=== PATIENT | male | born 1980 | race Caucasian/White ===

== ENCOUNTER 2019-11-04 22:38 | Emergency (ER) | payer OTHER, SELFPAY ==
[2019-11-04 22:39] VITALS: BP 123/73; PULSE 113; RESP 18; TEMP 36.7; O2SAT 97; BMI 23.0
--- NOTE | 2019-11-04 22:58 | ED.DCSUM_ITS ---
- ER Visit Summary Date of Service: 11/04/19 Chief Complaint: Alcohol abuse History of Present Illness: The patient is a 39 M who presents with alcohol abuse requesting detox. Patient states he last drank approximately 1 hour prior to arrival. Patient states he drinks large amount of alcohol daily. Family states that patient went through detox back in April. Family states that the patient started drinking on the weekends but has been drinking daily for the past month or so. Patient denies any vomiting or diarrhea. Patient denies any seizures. Family states that patient has had a history of alcohol withdrawal seizures. Patient states he has also had a history of delirium tremens in the past. Currently, patient denies any hallucinations. Patient denies any tremors at the present time. Physical Examination: Vital signs are stable for tachycardia of 113. Patient is afebrile. Patient is in no acute distress. Patient appears to be intoxicated. Oral mucosa is pink and moist. Neck is supple. Trachea is midline. There is no JVD. Heart was regular and tachycardic. Lungs are clear and equal bilaterally. Abdomen is soft. Bowel sounds are normal. There is no tenderness. Cranial nerves II through XII are intact. There are no focal motor or sensory deficits. There are no tremors noted. Extremities are intact. There is no calf tenderness or edema. Test Results: CBC, comprehensive metabolic profile, serum alcohol level, and uri ne tox screen were ordered. Serum alcohol level was 466. The remaining labs were essentially within normal limits. Emergency Department Course and Treatment: Patient was given a dose of oral phenobarb here. Case was discussed with the hospitalist, Dr. Ramachandran. She will be in to evaluate the patient and admit the patient to her service. Patient and family understand and are agreeable with the plan. All questions were answered. Patient changed his mind prior to being admitted to the floor. Patient wants to go home. Patient will be discharged. Patient was instructed to return if worse in any way. Patient's girlfriend will take him home and is agreeable to taking him home. Disposition: Discharge home Impression: Alcohol dependence This note was generated with [email or web address] dictation software. It may contain incorrect words, spelling, and punctuation that were not noted in review of the chart prior to signing ED Disposition - Plan for ED Patient: Disposition: Acute Care [facility] Diagnosis: Alcohol dependence Instructions: ED Alcohol Abuse Referrals: NOT,DEFINED [NON-STAFF] - 3-5 Days
--- NOTE | 2019-11-04 22:59 | HP.PCM_ITS ---
Problem List (1) Alcohol withdrawal Status: Acute Qualifiers: Complication of substance-induced condition: with unspecified complication Qualified Code(s): F10.239 - Alcohol dependence with withdrawal, unspecified (2) Anxiety Status: Chronic (3) Tobacco use Status: Chronic History of Present Illness Date of Admission: 11/04/19 Chief Complaint: Acute EtOH Withdrawal The patient is a 39 y/o M w/ PMHx: EtOH abuse with history of prior DT/prior seizures, Tobacco use, Untreated Anxiety who presents to the [facility] ED on 11/04/19 w/ noted EtOH significant abuse with prior severe withdrawal symptoms including seizures/DT noting interest in detoxification with last EtOH intake ~ 1 hour prior to ED arrival with recent onset of nausea, tremors, agitation, tactile disturbances secondary to decreased EtOH usage on day of ED presentation. Patient interested in attaining sober status. He does note prior detoxification program usage. Work-up in the ED included T 98, heart rate 113, BP 123/73, respiratory rate 18, 97% on room air, pending CBC, CMP, EtOH level, UDS upon requested evaluation of patient. In the ED patient administered phenobarbital 32.4 mg po x 1. Patient notes that he has attempted withdrawal treatment alone and in rehab setting several times, possibly up to 50. He does tend to drink more heavily and binge on the weekends secondary to his job. He has increased his intake over the last 2 weekends. He does have considerable anxiety and notes the only treatment he has had in the past is Vistaril which would did not work. He currently sees a nurse practitioner as his primary care and although she does know that he is an alcoholic he has never confided that he is severe anxiety. He notes that over the last 24 hours he has attempted to decrease his usual intake which is normally one half of 1/5 of gin. Past Medical History Past Medical History (Chronic Problems): Chronic Problems Anxiety (Chronic) Tobacco use (Chronic) Allergies No Known Allergies Allergy (Verified 11/04/19 22:42) Surgical History: - - Tonsillectomy. Psychiatric History: Anxiety Lives: Spouse/ Significant Other - Patient lives with his girlfriend. Smoking Status: Current every day smoker - With ongoing 1 pack/day cigarette tobacco usage. Tobacco Use: Cigarettes Alcohol: Heavy - Patient started drinking when he was 22 and continued to escalate, more so binge style currently, drinking one half of 1/5 normally daily. Drugs: None - *Family History Maternal History Items: - - Patient notes a maternal family history of heart disease. Patient notes a maternal grandfather with significant alcohol abuse history. Paternal History Items: - - Patient notes paternal family history of diabetes and colon cancer. Patient notes a paternal grandfather with significant alcohol abuse history. Review of Systems Constitutional: Reports: Malaise, Weakness, Fatigue. Denies: Anorexia, Chills, Fever, Weight Change HEENT: Denies: Head Aches, Sinus Congestion, Sinus Drainage Cardiovascular: Denies: Chest Pain, Palpitations Respiratory: Denies: Cough, Shortness of breath at rest, Sputum production Gastrointestinal: Reports: Nausea. Denies: Abdominal Pain, Vomiting Genitourinary: Denies: Dysuria Musculoskeletal: Denies: Joint Pain, Joint Tenderness Skin: Denies: Rash, Wounds Neurological: Reports: Tremor, Seizures - Prior DT., - - Significantly restle ss.. Denies: Focal weakness, Numbness, Tingling Psychiatric: Reports: Anxiety. Denies: Depression, Homicidal Ideations, Suicidal Ideations Hematologic/ Lymphatic: Denies: Easy Bruising, Easy Bleeding VTE Information - Inpt Only VTE Present on Admission: No VTE Mechan Device Prophylaxis: None VTE Pharm Prophylaxis ordered?: No Reason prophylaxis not ordered:: Treatment Not Indicated Patient Problems: Active and Suspected Problems Alcohol withdrawal (Acute) Subjective: Patient seated upright in the ED bed, mildly agitated, mild tremors noted. Objective: Physical Examination: General: awake, alert, oriented x 3 and cooperative, seated upright in the ED bed, mildly agitated. Skin: normal color, turgor, no icterus, cyanosis. HEENT: AT/NC, EOMI, PERRLA, mildly dry MM, no carotid bruits or JVD noted. Lungs: CTA bilaterally, moderate effort, moderate decrease BL bases, no rales, ronchi or wheezing. Heart: Mildly tachycardic with regular rhythm; no gallop, rub audible. Abdomen: soft, NTTP, ND, normal BS, mild positive HM. Extremities: no cyanosis, clubbing, or edema. Neurological: patient awake, alert, oriented x 3; cognitive function intact; pupils equally reactive to light and accomodation; cranial nerves II-XII grossly normal, moving all 4 extremities, no focal deficits, strength moderately good Alesha secondary to acute presentation, restless, mildly agitated, mild tremor noted. Psychiatric: affect appears fatigued, mildly agitated, mild irritability when discussing his anxiety, denies any acute depressive symptoms. - Physical Exam Vitals/I&O's: Vital Signs Temp Pulse Resp BP Pulse Ox 98.0 F 113 H 18 123/73 H 97 11/04/19 22:39 11/04/19 22:39 11/04/19 22:39 11/04/19 22:39 11/04/19 22:39 Oxygen Delivery Method Room Air Weight: 165 lb Body Mass Index (BMI) 23.0 Assessment/Plan All Active Problems Alcohol withdrawal (Acute) The patient is a 39 y/o M w/ PMHx: EtOH abuse with history of prior DT/prior seizures, Tobacco use, Untreated Anxiety who presents to the [facility] ED on 11/04/19 w/ noted EtOH significant abuse with prior severe withdrawal symptoms including seizures/DT noting interest in detoxification. 1. Acute EtOH Withdrawal: Will admit to [facility] on telemetry given seizure history, routine labs pending per ED upon presentation. Given interest in sobriety, will initiate and continue on protocol with taper course of Phenobarbital, scheduled gabapentin for seizure prophylaxis, as needed Catapres, Bentyl, Vistaril, IV fluids, IV antiemetics, Tylenol as needed for pain. Will consult Case management for assistance for transition to next level of rehabilitation care. Mag, phos requested. Maintain on CIWA protocol concurrently. 2. Untreated anxiety: Strongly encourage patient to consider discussions with his primary care regarding anxiety and initiation of potentially SSRI versus SNRI. Case management consultation with referral for 180 which can assist with counseling set up. 3. Tobacco Abuse: Encouraged cessation, inpatient consultation per RT, NR if desired. 4. DVT prophylaxis: Low risk, encourage ambulation. Inpatient E&M: 32499 Init Hosp L3
[2019-11-04 23:19] LABS: Absolute Lymphocyte Count 2.58 X10^3/uL (0.83-4.51); Absolute Neutrophil Count 2.3 X10^3/uL (2.0-7.7); Basophil# 0.07 X10^3/uL; Basophil% 1.2 % (0-1); Eosinophil# 0.38 X10^3/uL; Eosinophils% 6.5 % (0-5); Hematocrit 48.5 % (40-54); Lymphocyte # 2.58 X10^3/ul (4.0); Lymphocyte % 44.1 % (19-41); Mean Corpuscular Hgb 30.7 pg (27.0-32.0); Mean Corpuscular Volume 92.9 fL (80-94); Mean Platelet Vol. 8.7 fl (6.2-12.0); Monocyte# 0.49 X10^3/uL; Monocyte% 8.4 % (0-10); NRBC Flagged by Analyzer 0 % (0-5); Neutrophil % 39.3 % (47-70); Platelet Count 282 K/mm3 (150-450); RBC Distribution Width CV 11.9 % (11.6-14.6); RBC Distribution Width SD 40.9 fl (35.1-43.9); Red Blood Count 5.22 M/mm3 (4.6-6.2); White Blood Count 5.9 K/mm3 (4.4-11.0)
[2019-11-04 23:36] LABS: Amphetamine Urine VISTA NEGATIVE (<1000 ng/mL); Barbiturate Urine VISTA NEGATIVE (< 200 ng/mL); Benzodiazepine Urine VISTA NEGATIVE (< 200 ng/mL); Cocaine Urine VISTA NEGATIVE (< 300 ng/mL); Ecstacy Urine VISTA NEGATIVE (< 500 ng/mL); Methadone Urine VISTA NEGATIVE (< 300 ng/mL); PCP Urine VISTA NEGATIVE (< 25 ng/mL); THC Urine VISTA NEGATIVE (< 50 ng/mL); Vista UDS pH Range 5
[2019-11-04 23:37] LABS: ALB/GLOB Ratio 1.4 RATIO (0.9-2.4); AST(SGOT) 22 U/L (15-37); Alanine Aminotransfer ALT/SGPT 24 U/L (16-61); Albumin, Serum 4.5 g/dL (3.2-5.0); Alkaline Phosphatase 51 U/L (45-117); Anion Gap 5 (5-15); BUN 10 mg/dL (7-18); BUN/Creat Ratio 9.6 RATIO (10-20); Chloride 111 mmol/L (98-107); Creatinine, Serum 1.04 mg/dL (0.70-1.30); EST Glomerular Filtration Rate 85 mL/min (>60); Est Glom Filt Rate - Afr Amer 102 mL/min (>60); Estimated Creatinine Clearance 101.95 ml/min; Globulin 3.2 g/dL (2.2-4.2); Glucose 114 mg/dL (74-106); Potassium 4.3 mmol/L (3.5-5.1); Protein, Total 7.7 g/dL (6.4-8.2); Sodium Level 144 mmol/L (136-145)
--- NOTE | 2019-11-05 00:16 | ED.RN ---
PATIENT DECIDED HE WOULD LIKE TO GO HOME AND NO LONGER GO THROUGH THE DETOX PROGRAM. DR. MCLEOD NOTIFIED.
[2019-11-05 00:44] VITALS: RESP 18
== END 2019-11-05 00:45 | disposition short-term general hospital (02) ==
LOC: ED 23:38
PROVIDERS: Emergency Provider Emergency Medicine
DX: F10.239 Alcohol dependence with withdrawal, unspecified (principal); F17.210 Nicotine dependence, cigarettes, uncomplicated; Y90.8 Blood alcohol level of 240 mg/100 ml or more; F41.9 Anxiety disorder, unspecified; N52.8 Other male erectile dysfunction; Z82.49 Family history of ischemic heart disease and other diseases of the circulatory system; Z83.3 Family history of diabetes mellitus
CPT/HCPCS: 80053; 80307; 80320; 85025; 99283; A4216; G0480

== ENCOUNTER 2019-11-05 18:30 | Inpatient (IN) | payer OTHER, SELFPAY ==
[2019-11-04 22:39] VITALS: BMI 23.0
[2019-11-05 18:32] VITALS: BP 122/75; PULSE 116; RESP 18; TEMP 37.1; O2SAT 95; BMI 23.7
--- NOTE | 2019-11-05 19:27 | ED.VISSUMM ---
- ER Visit Summary Date of Service: 11/05/19 Chief Complaint: Alcohol detox History of Present Illness: The patient is a 39 M who is here requesting alcohol detox. He states that he drinks about 1/5 of gin per day. His last drink was 11:30 AM this morning. He has been to detox multiple times. He states that he does binge drink. He drinks until I passed out. He was here last night and had a medical work-up but left before he admitted to the hospital. He states that last night he was not ready but today he feels like he is ready for detox. Physical Examination: Vital signs reviewed. HEENT exam unremarkable. Heart is cardiac and regular rhythm without murmurs. Lungs are clear to auscultation. Abdomen is soft and nontender. Extremities reveal no edema. Skin exam normal. Neurologic exam normal other than the patient's intoxication. Test Results: Alcohol level is pending Emergency Department Course and Treatment: Discussed with the hospitalist. She knows the patient as she saw him last night. She will order further laboratory studies and admit the patient to the hospital Treatment Plan: [] Disposition: Admit Impression: Alcohol withdrawal This note was generated with [employer] dictation software. It may contain incorrect words, spelling, and punctuation that were not noted in review of the chart prior to signing ED Disposition - Plan for ED Patient: Referrals: Care Physician,No Primary [Primary Care Provider] -
[2019-11-05 19:43] VITALS: BP 112/51; PULSE 94; RESP 18; TEMP 37; O2SAT 96
--- NOTE | 2019-11-05 20:03 | HP.PCM_ITS ---
Problem List (1) Alcohol withdrawal Status: Acute Qualifiers: Complication of substance-induced condition: with unspecified complication Qualified Code(s): F10.239 - Alcohol dependence with withdrawal, unspecified (2) Anxiety Status: Chronic (3) Tobacco use Status: Chronic (4) Alcohol dependence Status: Chronic Qualifiers: Substance use status: unspecified alcohol-induced disorder Qualified Code(s): F10.29 - Alcohol dependence with unspecified alcohol-induced disorder History of Present Illness Date of Admission: 11/05/19 Chief Complaint: Acute EtOH Withdrawal treatment The patient is a 39 y/o M w/ PMHx: EtOH abuse with history of prior DT/prior seizures, Tobacco use, Untreated Anxiety who initially presented day prior on 11/04/2019 for alcohol withdrawal for treatment however he left following evaluation and admission from the ED prior to treatment but now returns to the [facility] ED on 11/05/2019 noting last intake to be 4 glucose earlier in the day in the early afternoon with no hard liquor on day of ED presentation, normal drinking one half of 1/5 of gin daily but interested in attaining sober status. Patient significantly less irritable than day prior. Patient day prior upon discussions had been very defensive when discussing his anxiety. Today patient more calm although tremors increased and notes ready for withdrawal treatment. Work-up in the ED included T 98.7, heart rate 116, BP 122/75, respiratory rate 18, 95% room on room air. Only lab obtained today was alcohol level noted to be 391. Day prior full panel of labs had been obtained with unremarkable CBC, unremarkable CMP, negative UDS at that time alcohol level had been 466. Past Medical History Past Medical History (Chronic Problems): Chronic Problems Anxiety (Chronic) Tobacco use (Chronic) Alcohol dependence (Chronic) Allergies No Known Allergies Allergy (Verified 11/05/19 18:32) Surgical History: - - Tonsillectomy. Psychiatric History: Anxiety Lives: Spouse/ Significant Other - Patient lives with his girlfriend. Smoking Status: Current every day smoker - With ongoing 1 pack/day cigarette tobacco usage Tobacco Use: Cigarettes Alcohol: Heavy - Patient started drinking when he was 22 and continued to escalate, more so binge style currently, drinking one half of 1/5 normally daily. Drugs: None - *Family History Maternal History Items: - - Patient notes a maternal family history of heart disease. Patient notes a maternal grandfather with significant alcohol abuse history. Paternal History Items: - - Patient notes paternal family history of diabetes and colon cancer. Patient notes a paternal grandfather with significant alcohol abuse hi story. Review of Systems Constitutional: Reports: Malaise, Weakness, Fatigue. Denies: Anorexia, Chills, Fever, Weight Change HEENT: Denies: Head Aches, Sinus Congestion, Sinus Drainage Cardiovascular: Denies: Chest Pain, Palpitations Respiratory: Denies: Cough, Shortness of breath at rest, Sputum production Gastrointestinal: Denies: Abdominal Pain, Nausea, Vomiting Genitourinary: Denies: Dysuria Musculoskeletal: Denies: Joint Pain, Joint Tenderness Skin: Denies: Rash, Wounds Neurological: Reports: Tremor, Seizures - History of prior withdrawal related D T., - - Restless, mild agitation.. Denies: Focal weakness, Numbness, Tingling Psychiatric: Reports: Anxiety. Denies: Depression, Homicidal Ideations, Suicidal Ideations Hematologic/ Lymphatic: Denies: Easy Bruising, Easy Bleeding VTE Information - Inpt Only VTE Present on Admission: No VTE Mechan Device Prophylaxis: None VTE Pharm Prophylaxis ordered?: No Reason prophylaxis not ordered:: Treatment Not Indicated Subjective: Seated upright in the ED bed, fatigued appearance, more so than day prior, again discussed admission and patient notes that he is ready for detoxification, mild tremors present, more than day prior. Objective: Physical Examination: General: awake, alert, oriented x 3 and cooperative, seated upright in the ED bed, fatigued appearance, mild tremors present. Skin: normal color, turgor, no icterus, cyanosis. HEENT: AT/NC, EOMI, PERRLA, mildly dry MM, no carotid bruits or JVD noted. Lungs: CTA bilaterally, moderate effort, moderate decrease BL bases, no rales, ronchi or wheezing. Heart: Mildly tachycardic with regular rhythm; no gallop, rub audible. Abdomen: soft, NTTP, ND, normal BS, mild positive HM. Extremities: no cyanosis, clubbing, or edema. Neurological: patient awake, alert, oriented x 3; cognitive function intact; pupils equally reactive to light and accomodation; cranial nerves II-XII grossly normal, moving all 4 extremities, no focal deficits, patient restless, was agitated the day prior, more amenable to treatment, mild tremors noted again. Psychiatric: affect appears fatigued, less irritable than day prior, very restless, no acute current depressive symptoms, admits to anxiety. - Physical Exam Vitals/I&O's: Vital Signs Temp Pulse Resp BP Pulse Ox 98.6 F 94 18 112/51 L 96 11/05/19 19:43 11/05/19 19:43 11/05/19 19:43 11/05/19 19:43 11/05/19 19:43 Oxygen Delivery Method Room Air Weight: 170 lb Body Mass Index (BMI) 23.7 Laboratory Results 11/05/19 19:20: Ethyl Alcohol Pending Assessment/Plan All Active Problems Alcohol withdrawal (Acute) The patient is a 39 y/o M w/ PMHx: EtOH abuse with history of prior DT/prior seizures, Tobacco use, Untreated Anxiety who presents to the [facility] ED on 11/05/19 for acute alcohol withdrawal, interested in detoxification treatment. 1. Acute EtOH Withdrawal: Will admit to [facility] on telemetry given seizure history, routine labs the day prior and not repeated, will obtain however magnesium and phosphorus levels and replete if appropriate.even patient not interested in admission will plan initiation and continued tapering course of phenobarbital, scheduled gabapentin for seizure prophylaxis, as needed Catapres, Bentyl, Vistaril, IV fluids, IV antiemetics, Tylenol as needed for pain. Will consult Case management for assistance for transition to next level of rehabilitation care and specifically focus on patient's anxiety with planned quick and early as well as aggressive follow-up for anxiety treatment is likely contributing greatly to his alcohol abuse. Maintain on CIIA protocol concurrently. 2. Untreated anxiety: Case management consulted to assist with alcohol withdrawal treatment transition but also for assurance of close early follow-up as severe anxiety likely contributing to patient's alcohol abuse. Discussed medication options and patient is interested and noted that this would be best done once he has performed inpatient detoxification. Patient is only ever been on Vistaril and this was not effective for his anxiety. Discussed likely necessity of SSRI versus SNRI. Patient will need early follow-up with counseling and PCP. 3. Tobacco Abuse: Encouraged cessation, inpatient consultation per RT, NR if desired. 4. DVT prophylaxis: Low risk, encourage ambulation. Inpatient E&M: 70662 Init Hosp L3
[2019-11-05 20:27] VITALS: BMI 23.1
--- NOTE | 2019-11-05 21:09 | CM.ED ---
Social Work Did not get a chance to assess patient in the ED. Telephone call to Raquel Prince. Updated on patient admission to [facility] program. Carissa Hansen MSW, ABNER
[2019-11-05 21:37] VITALS: BP 97/64; PULSE 90; RESP 18; TEMP 36.9; O2SAT 97
[2019-11-05 21:48] LABS: Magnesium 2.1 mg/dL (1.6-2.6); Phosphorus 4.3 mg/dL (2.5-4.9)
[2019-11-05] MEDS: Lactated Ringers 1,000 ML 125 ML IV (21:51)
[2019-11-05] MEDS: Phenobarbital 32.4 MG Tablet 64.8 MG PO (21:58)
[2019-11-05] MEDS: 0.9% Saline Lock 10 ML Syringe IV ×2 (22:02→22:10)
[2019-11-05] MEDS: hydrOXYzine PAM 25 MG Capsule 50 MG PO (22:08)
[2019-11-05] MEDS: Ibuprofen 600 MG Tablet PO (22:08)
[2019-11-05] MEDS: traZODone 100 MG Tablet PO (22:09)
[2019-11-06] VITALS (12 sets, daily range): BP systolic 98–143; BP diastolic 60–92; PULSE 71–100; RESP 16–18; TEMP 36.5–37.3; O2SAT 93–100
[2019-11-06] MEDS: Phenobarbital 32.4 MG Tablet 64.8 MG PO ×6 (02:07→21:44)
[2019-11-06] MEDS: 0.9% Saline Lock 10 ML Syringe IV (06:04)
--- NOTE | 2019-11-06 07:15 | PCM.PN.HOSP ---
Reason for Visit: Alcohol withdrawal Subjective: 39-year-old gentleman with history of alcohol dependence admitted with acute alcohol withdrawal Objective: GENERAL: cooperative HEENT: Atraumatic; EYES; Anicteric, Normal Conjunctiva NECK; supple, normal thyroid, RESPIRATORY: Diminished to auscultation CARDIOVASCULAR: Regular S1 S2, GI: soft, normoactive bowel sounds, : No Renal angle tenderness; EXTREMITIES: No edema, no clubbing, MUSCULOSKELETAL: no muscle waisting NEURO: Awake; no lateralizing signs. SKIN: No Rash PSYCH; Flat affect Vitals/I&O's: Vital Signs Temp Pulse Resp BP Pulse Ox 97.7 F L 71 16 98/62 97 11/06/19 06:00 11/06/19 06:00 11/06/19 06:00 11/06/19 06:00 11/06/19 06:00 Oxygen Delivery Method Room Air Weight: 75.2 kg Body Mass Index (BMI) 23.1 Intake and Output for Last 24 Hours 11/04/19 11/05/19 11/06/19 23:59 23:59 23:59 Intake Total 1600 / 1600 Balance 1600 / 1600 Laboratory Results 11/05/19 19:20: Ethyl Alcohol 391.0 H* 11/05/19 19:20: Phosphorus 4.3, Magnesium 2.1 Current Medications Acetaminophen (Tylenol) 500 mg PO Q4H PRN PRN PRN Reason: Temp > 100.4 F Al Hydroxide/Mg Hydroxide (Mylanta Ii) 30 ml PO Q6H PRN PRN PRN Reason: dyspesia Bisacodyl (Dulcolax) 10 mg RECTAL DAILY PRN PRN Reason: Constipation Dicyclomine HCl (Bentyl) 20 mg PO Q6H PRN PRN PRN Reason: abdominal discomfort Folic Acid (Folic Acid) 1 mg PO DAILY@0800 DEANNA Gabapentin (Neurontin) 300 mg PO Q8H PRN PRN PRN Reason: moderate to severe anxiety Hydroxyzine Pamoate (Vistaril Pamoate Capsule) 50 mg PO Q4H PRN PRN PRN Reason: mild anxiety Last Admin: 11/05/19 22:08 Dose: 50 mg Documented by: Ibuprofen (Motrin) 600 mg PO Q8H PRN PRN PRN Reason: Pain Score 1-10/10 Last Admin: 08/13/20 22:08 Dose: 600 mg Documented by: Loperamide HCl (Imodium) 2 mg PO Q4H PRN PRN PRN Reason: LOOSE STOOLS Nicotine (Nicoderm Cq (Pbkc)) 21 mg TRANSDERM. DAILY DEANNA Last Admin: 11/05/19 21:59 Dose: 21 mg Documented by: Ondansetron HCl (Zofran Odt) 8 mg PO Q8H PRN PRN PRN Reason: NAUSEA Phenobarbital (Phenobarbital) 97.2 mg PO Q4H DEANNA; Taper Stop: 11/10/19 05:29 Last Admin: 11/06/19 06:04 Dose: 97.2 mg Documented by: Senna (Senokot) 2 tablet PO QHS PRN PRN PRN Reason: Constipation Sodium Chloride () 10 - 40 ml IV UD PRN PRN Reason: SALINE FLUSH Last Admin: 11/06/19 06:04 Dose: 10 ml Documented by: Thiamine HCl (Vitamin B1) 100 mg PO DAILYCM DEANNA Trazodone HCl (Desyrel) 100 mg PO QHS PRN PRN PRN Reason: INSOMNIA Last Admin: 11/05/19 22:09 Dose: 100 mg Documented by: STROKE Vital Signs/Narrative: Vital Signs Temp Pulse Resp BP Pulse Ox 11/06/19 06:00 97.7 F L 71 16 98/62 97 Medical Necessity - Tobacco Use Smoking Status: Current every day smoker - With ongoing 1 pack/day cigarette tobacco usage Tobacco Use: Cigarettes Assessment/Plan All Active Problems Alcohol withdrawal (Acute) 39-year-old gentleman with history of alcohol dependence admitted with acute alcohol withdrawal 1. Acute alcohol withdrawal in a patient with alcohol dependence ?Patient has been admitted to regular nursing floor for medical stabilization using phenobarb. Patient was counseled on cessation and referral made to [facility] counseling services 2. Tobacco dependence - Counseled on cessation, offered nicotine patch for tobacco cravings 3. Anxiety disorder ?Patient encouraged follow-up with PCP for initiation of SSRI if needed 4. DVT prophylaxis ?Low risk did encourage early ambulation Inpatient E&M: 73728 Subs Hosp L2
[2019-11-06] MEDS: Thiamine Hydrochloride 100 MG Tablet PO (09:13)
[2019-11-06] MEDS: Folic Acid 1 MG Tablet PO (09:13)
--- NOTE | 2019-11-06 16:34 | ADDICTION ---
this narrative writer met with patient in his room to conduct ASAM, AUDIT and MSE assessments as well as discharge planning. Patient reports that he was drinking daily prior to admitting into [facility] for medical withdrawal management and appears motivated to engage in follow-up treatment with [facility]. He is scheduled for an appointment on 11/12/2019 at 5:30pm and plans to engage in treatment following this appointment. This narrative writer will fax completed assessments to [facility]
[2019-11-06] MEDS: traZODone 100 MG Tablet PO (21:47)
[2019-11-07] VITALS (8 sets, daily range): BP systolic 105–113; BP diastolic 61–83; PULSE 56–75; RESP 16; TEMP 36.6–36.8; O2SAT 96–99
[2019-11-07] MEDS: Phenobarbital 32.4 MG Tablet 64.8 MG PO ×6 (02:08→22:17)
--- NOTE | 2019-11-07 07:30 | PN_ITS ---
Reason for Visit: Acute alcohol withdrawal Subjective: Patient seen complains of sore throat this morning Cepacol lozenges ordered if symptoms persist for more than a day we will proceed to obtain COVID-19 assay Objective: GENERAL: cooperative HEENT: Atraumatic; EYES; Anicteric, Normal Conjunctiva NECK; supple, normal thyroid, RESPIRATORY: Diminished to auscultation CARDIOVASCULAR: Regular S1 S2, GI: soft, normoactive bowel sounds, : No Renal angle tenderness; EXTREMITIES: No edema, no clubbing, MUSCULOSKELETAL: no muscle waisting NEURO: Awake; no lateralizing signs. SKIN: No Rash PSYCH; Flat affect Vitals/I&O's: Vital Signs Temp Pulse Resp BP Pulse Ox 98.3 F 59 L 16 112/82 H 99 11/07/19 02:00 11/07/19 04:07 11/07/19 02:00 11/07/19 02:00 11/07/19 02:00 Oxygen Delivery Method Room Air Weight: 75.2 kg Body Mass Index (BMI) 23.1 Intake and Output for Last 24 Hours 11/05/19 11/06/19 11/07/19 23:59 23:59 23:59 Intake Total 1600 / 1600 Balance 1600 / 1600 Current Medications Acetaminophen (Tylenol) 500 mg PO Q4H PRN PRN PRN Reason: Temp > 100.4 F Al Hydroxide/Mg Hydroxide (Mylanta Ii) 30 ml PO Q6H PRN PRN PRN Reason: dyspesia Bisacodyl (Dulcolax) 10 mg RECTAL DAILY PRN PRN Reason: Constipation Dicyclomine HCl (Bentyl) 20 mg PO Q6H PRN PRN PRN Reason: abdominal discomfort Folic Acid (Folic Acid) 1 mg PO DAILY@0800 DEANNA Last Admin: 11/06/19 09:13 Dose: 1 mg Documented by: Gabapentin (Neurontin) 300 mg PO Q8H PRN PRN PRN Reason: moderate to severe anxiety Hydroxyzine Pamoate (Vistaril Pamoate Capsule) 50 mg PO Q4H PRN PRN PRN Reason: mild anxiety Last Admin: 11/05/19 22:08 Dose: 50 mg Documented by: Ibuprofen (Motrin) 600 mg PO Q8H PRN PRN PRN Reason: Pain Score 1-10/10 Last Admin: 11/05/19 22:08 Dose: 600 mg Documented by: Loperamide HCl (Imodium) 2 mg PO Q4H PRN PRN PRN Reason: LOOSE STOOLS Nicotine (Nicoderm Cq (Pbkc)) 21 mg TRANSDERM. DAILY [facility] Last Admin: 11/06/19 09:13 Dose: 21 mg Documented by: Ondansetron HCl (Zofran Odt) 8 mg PO Q8H PRN PRN PRN Reason: NAUSEA Phenobarbital (Phenobarbital) 64.8 mg PO Q4H [facility]; Taper Stop: 11/10/19 05:29 Last Admin: 11/07/19 05:55 Dose: 64.8 mg Documented by: Senna (Senokot) 2 tablet PO QHS PRN PRN PRN Reason: Constipation Sodium Chloride () 10 - 40 ml IV UD PRN PRN Reason: SALINE FLUSH Last Admin: 11/06/19 06:04 Dose: 10 ml Documented by: Thiamine HCl (Vitamin B1) [facility] Last Admin: 11/06/19 09:13 Dose: 100 mg Documented by: Trazodone HCl (Desyrel) 100 mg PO QHS PRN PRN PRN Reason: INSOMNIA Last Admin: 11/06/19 21:47 Dose: 100 mg Documented by: STROKE Vital Signs/Narrative: Vital Signs Pulse 11/07/19 04:07 59 L Medical Necessity - Tobacco Use Smoking Status: Current every day smoker Tobacco Use: Cigarettes Assessment/Plan All Active Problems Alcohol withdrawal (Acute) 39-year-old gentleman with history of alcohol dependence admitted with acute alcohol withdrawal 1. Acute alcohol withdrawal in a patient with alcohol dependence ?Patient has been admitted to regular nursing floor for medical stabilization using phenobarb. Patient was counseled on cessation and referral made to [facility] counseling services 2. Tobacco dependence - Counseled on cessation, offered nicotine patch for tobacco cravings 3. Anxiety disorder ?Patient encouraged follow-up with PCP for initiation of SSRI if needed 4. DVT prophylaxis ?Low risk did encourage early ambulation 4. Acute pharyngitis ?Treated symptomatically with plans to obtain COVID-19 assay if symptoms persist Inpatient E&M: 84199 Subs Hosp L2
[2019-11-07 09:27] LABS: Absolute Lymphocyte Count 1.23 X10^3/uL (0.83-4.51); Absolute Neutrophil Count 3.2 X10^3/uL (2.0-7.7); Basophil# 0.05 X10^3/uL; Basophil% 0.9 % (0-1); Eosinophil# 0.42 X10^3/uL; Eosinophils% 7.7 % (0-5); Hematocrit 44.7 % (40-54); Lymphocyte # 1.23 X10^3/ul (4.0); Lymphocyte % 22.7 % (19-41); Mean Corp Hgb Conc 33.6 g/dL (32-36); Mean Corpuscular Hgb 30.4 pg (27.0-32.0); Mean Corpuscular Volume 90.7 fL (80-94); Mean Platelet Vol. 9.1 fl (6.2-12.0); Monocyte# 0.49 X10^3/uL; NRBC Flagged by Analyzer 0 % (0-5); Neutrophil # 3.23 X10^3/uL (2.7-7.7); Neutrophil % 59.5 % (47-70); Platelet Count 194 K/mm3 (150-450); RBC Distribution Width CV 11.2 % (11.6-14.6); RBC Distribution Width SD 37.4 fl (35.1-43.9); Red Blood Count 4.93 M/mm3 (4.6-6.2); White Blood Count 5.4 K/mm3 (4.4-11.0)
[2019-11-07] MEDS: Thiamine Hydrochloride 100 MG Tablet PO (09:30)
[2019-11-07] MEDS: Folic Acid 1 MG Tablet PO (09:30)
[2019-11-07 09:44] LABS: ALB/GLOB Ratio 1.3 RATIO (0.9-2.4); AST(SGOT) 18 U/L (15-37); Alanine Aminotransfer ALT/SGPT 19 U/L (16-61); Albumin, Serum 3.8 g/dL (3.2-5.0); Alkaline Phosphatase 53 U/L (45-117); Anion Gap 7 (5-15); BUN 10 mg/dL (7-18); BUN/Creat Ratio 10.9 RATIO (10-20); Calcium,Total 8.7 mg/dL (8.5-10.1); Chloride 105 mmol/L (98-107); Creatinine, Serum 0.92 mg/dL (0.70-1.30); EST Glomerular Filtration Rate 97 mL/min (>60); Est Glom Filt Rate - Afr Amer 118 mL/min (>60); Glucose 128 mg/dL (74-106); Magnesium 1.9 mg/dL (1.6-2.6); Potassium 3.9 mmol/L (3.5-5.1); Protein, Total 6.8 g/dL (6.4-8.2); Sodium Level 138 mmol/L (136-145)
[2019-11-07] MEDS: BENZOCAINE/MENTHOL 1 LOZENGE MUCOUS MEM ×2 (14:50→22:23)
[2019-11-07] MEDS: traZODone 100 MG Tablet PO (22:16)
[2019-11-08] MEDS: Phenobarbital 32.4 MG Tablet 64.8 MG PO ×2 (01:58→05:51)
[2019-11-08 05:56] VITALS: BP 109/70; PULSE 66; RESP 14; TEMP 36.4; O2SAT 96
--- NOTE | 2019-11-08 08:49 | DCINST_ITS ---
You will use the following diet at home:: No restrictions Allergies/Adverse Reactions: Allergies No Known Allergies Allergy (Verified 11/05/19 18:32) Primary Care Physician: Care Physician,No Primary [Primary Care Provider] - Test Results: Test results from this visit will be discussed in further detail at your follow- up appointment, if applicable. Please Follow Up With: [facility] counseling services When: as scheduled Proposed Discharge Date: 11/08/19
--- NOTE | 2019-11-08 08:51 | PCM.DC.SUM ---
Discharge Date and Diagnosis Date of Admission: 11/05/19 Date of Discharge: 11/08/19 - Primary Discharge Diagnosis Acute Problems: Alcohol withdrawal - Secondary Discharge Diagnosis Chronic Problems: Chronic Problems Anxiety (Chronic) Tobacco use (Chronic) Hospital Course and Treatment Summary of Care Provided: 39-year-old gentleman with history of alcohol dependence admitted with acute alcohol withdrawal 1. Acute alcohol withdrawal in a patient with alcohol dependence ?Patient has been admitted to regular nursing floor for medical stabilization using phenobarb. Patient was counseled on cessation and referral made to [facility] counseling services -Patient stable for discharge on 11/07/2019. 2. Tobacco dependence - Counseled on cessation, offered nicotine patch for tobacco cravings 3. Anxiety disorder ?Patient encouraged follow-up with PCP for initiation of SSRI if needed 4. DVT prophylaxis ?Low risk did encourage early ambulation 4. Acute pharyngitis ?Treated symptomatically - Physical Exam Vitals/I&O's: Vital Signs Temp Pulse Resp BP Pulse Ox 97.5 F L 66 14 109/70 96 11/08/19 05:56 11/08/19 05:56 11/08/19 05:56 11/08/19 05:56 11/08/19 05:56 Oxygen Delivery Method Room Air Weight: 75.2 kg Body Mass Index (BMI) 23.1 Intake and Output for Last 24 Hours 11/06/19 11/07/19 11/08/19 23:59 23:59 23:59 Intake Total 1600 / 1600 Balance 1600 / 1600 General: Alert HEENT: Atraumatic Neck: Supple Lungs: Clear to auscultation Cardiovascular: Regular rate, Regular Rhythm Psych/Mental Status: Normal Affect Laboratory Results 11/07/19 09:14: WBC 5.4, RBC 4.93, Hgb 15.0, Hct 44.7, MCV 90.7, MCH 30.4, MCHC 33.6, RDW Std Deviation 37.4, RDW Coeff of Donovan 11.2 L, Plt Count 194, MPV 9.1, Immature Gran % (Auto) 0.200, Neut % (Auto) 59.5, Lymph % (Auto) 22.7, [place] % (Auto) 9.0, Eos % (Auto) 7.7 H, Baso % (Auto) 0.9, Absolute Neuts (auto) 3.2, Absolute Lymphs (auto) 1.23, Nucleated RBC % 0 08/15/20 09:14: Sodium 138, Potassium 3.9, Chloride 105, Carbon Dioxide 26.0, Anion Gap 7, BUN 10, Creatinine 0.92, Estim Creat Clear Calc 115.80, Est GFR (MDRD) Af Amer 118, Est GFR (MDRD) Non-Af 97, BUN/Creatinine Ratio 10.9, Glucose 128 H, Calcium 8.7, Magnesium 1.9, Total Bilirubin 1.00, AST 18, ALT 19, Alkaline Phosphatase 53, Total Protein 6.8, Albumin 3.8, Globulin 3.0, Albumin/Globulin Ratio 1.3 Current Medications Acetaminophen (Tylenol) 500 mg PO Q4H PRN PRN PRN Reason: Temp > 100.4 F Al Hydroxide/Mg Hydroxide (Mylanta Ii) 30 ml PO Q6H PRN PRN PRN Reason: dyspesia Bisacodyl (Dulcolax) 10 mg RECTAL DAILY PRN PRN Reason: Constipation Dicyclomine HCl (Bentyl) 20 mg PO Q6H PRN PRN PRN Reason: abdominal discomfort Folic Acid (Folic Acid) 1 mg PO DAILY@0800 [facility] Last Admin: 11/07/19 09:30 Dose: 1 mg Documented by: Gabapentin (Neurontin) 300 mg PO Q8H PRN PRN PRN Reason: moderate to severe anxiety Hydroxyzine Pamoate (Vistaril Pamoate Capsule) 50 mg PO Q4H PRN PRN PRN Reason: mild anxiety Last Admin: 11/05/19 22:08 Dose: 50 mg Documented by: Ibuprofen (Motrin) 600 mg PO Q8H PRN PRN PRN Reason: Pain Score 1-10/10 Last Admin: 11/05/19 22:08 Dose: 600 mg Documented by: Loperamide HCl (Imodium) 2 mg PO Q4H PRN PRN PRN Reason: LOOSE STOOLS Nicotine (Nicoderm Cq (Pbkc)) 21 mg TRANSDERM. DAILY [facility] Last Admin: 11/07/19 09:30 Dose: 21 mg Documented by: Ondansetron HCl (Zofran Odt) 8 mg PO Q8H PRN PRN PRN Reason: NAUSEA Phenobarbital (Phenobarbital) 64.8 mg PO Q6H [facility]; Taper Stop: 11/10/19 05:29 Last Admin: 11/08/19 05:51 Dose: 64.8 mg Documented by: Senna (Senokot) 2 tablet PO QHS PRN PRN PRN Reason: Constipation Sodium Chloride () 10 - 40 ml IV UD PRN PRN Reason: SALINE FLUSH Last Admin: 11/06/19 06:04 Dose: 10 ml Documented by: Thiamine HCl (Vitamin B1) 100 mg PO DAILYCM DEANNA Last Admin: 11/07/19 09:30 Dose: 100 mg Documented by: Throat Lozenges (Cepacol Sore Throat Lozenge) 1 lozenge MUCOUS MEM Q2H PRN PRN PRN Reason: SORE THROAT Last Admin: 11/07/19 22:23 Dose: 1 lozenge Documented by: Trazodone HCl (Desyrel) 100 mg PO QHS PRN PRN PRN Reason: INSOMNIA Last Admin: 11/07/19 22:16 Dose: 100 mg Documented by: Discharge Diet: No Restrictions Discharge Activity: Return to Normal Activity Primary Care Physician: Care Physician,No Primary [Primary Care Provider] - Please Follow Up With: [facility] counseling services When: as scheduled Disposition: Home Minutes spent on discharge:: 35 Patient Condition:: Stable Medical Necessity - Tobacco Use Smoking Status: Current every day smoker Tobacco Use: Cigarettes Meaningful Use Info Meaningful Use Diagnoses (Choose all that apply): None applicable Inpatient E&M: 39382 Disch Hosp
[2019-11-08 09:19] VITALS: BP 111/69; PULSE 79; RESP 18; TEMP 37.2; O2SAT 99
[2019-11-08] MEDS: Folic Acid 1 MG Tablet PO (09:22)
[2019-11-08] MEDS: Thiamine Hydrochloride 100 MG Tablet PO (09:22)
== END 2019-11-08 10:05 | disposition home or self-care (01) | DRG 897 ==
LOC: ED 19:20 → MS3 21:30
PROVIDERS: Admitting Provider Family Medicine; Emergency Provider Emergency Medicine; Visit Provider Internal Medicine
DX: F10.239 Alcohol dependence with withdrawal, unspecified (principal); F41.9 Anxiety disorder, unspecified; F17.210 Nicotine dependence, cigarettes, uncomplicated; J02.9 Acute pharyngitis, unspecified; F10.29 Alcohol dependence with unspecified alcohol-induced disorder; Y90.8 Blood alcohol level of 240 mg/100 ml or more; Z80.0 Family history of malignant neoplasm of digestive organs; Z82.49 Family history of ischemic heart disease and other diseases of the circulatory system; Z83.3 Family history of diabetes mellitus
CPT/HCPCS: 36415; 80053; 80320; 83735; 84100; 85025; 99282; 99406; J7120; A4216; G0480

== ENCOUNTER 2020-03-02 10:38 | Inpatient (IN) | payer OTHER, SELFPAY ==
[2019-11-05 20:27] VITALS: BMI 23.1
[2020-03-02 10:40] VITALS: BP 141/118; PULSE 100; RESP 18; TEMP 36.6; O2SAT 99; BMI 178.5
--- NOTE | 2020-03-02 11:05 | ED.VISSUMM ---
- ER Visit Summary Date of Service: 03/02/20 Chief Complaint: [Alcohol intoxication] History of Present Illness: The patient is a 40 M [presents to the emergency department via private vehicle. Patient was brought in by his father requesting detox from alcohol. Patient is unclear when he last drank this morning. Patient states that he normally drinks gin. Patient drinks daily. Patient states that he is recently gone through detox. Patient states he drinks every day. He currently states that he otherwise does not feel bad. He has no other medical history. Patient denies prior surgeries. He does smoke cigarettes. He denies any illicit drug use.] Physical Examination: [HEENT-PERRLA, EOMI. Cranial nerves II through XII grossly intact. TMs clear. Mucous membranes moist. No adenopathy. Patient is awake and at times slow to respond to questions but answers questions appropriately. Cardiovascular-regular rate and rhythm without murmur or ectopy Lungs-clear to auscultation, chest wall stable without crepitus or subcu emphysema Abdomen-normoactive bowel sounds, soft, nontender, no rebound or rigidity, no peritoneal signs. Extremities-intact ?4, normal range of motion, normal pulses, atraumatic] Test Results: [CBC with differential obtained showed a white count of 6.5, hemoglobin 15.8, hematocrit 45, placed 319. Chemistries unremarkable. LFTs were normal. Alcohol was 423.] Emergency Department Course and Treatment: [IV line established on arrival.] I discussed results with patient and he is willing to have detox. Treatment Plan: [Admit] Disposition: [Admit] Impression: [Alcohol intoxication Request for detox from alcohol ] This note was generated with [employer] dictation software. It may contain incorrect words, spelling, and punctuation that were not noted in review of the chart prior to signing ED Disposition - Plan for ED Patient: Referrals: Care Physician,No Primary [Primary Care Provider] -
[2020-03-02 11:15] LABS: Absolute Lymphocyte Count 2.58 X10^3/uL (0.83-4.51); Absolute Neutrophil Count 2.7 X10^3/uL (2.0-7.7); Basophil% 1.5 % (0-1); Eosinophil# 0.18 X10^3/uL; Eosinophils% 2.8 % (0-5); Hematocrit 45.4 % (40-54); Hemoglobin 15.8 g/dL (13.0-16.5); Lymphocyte # 2.58 X10^3/ul (4.0); Lymphocyte % 39.8 % (19-41); Mean Corp Hgb Conc 34.8 g/dL (32-36); Mean Corpuscular Hgb 31.2 pg (27.0-32.0); Mean Corpuscular Volume 89.5 fL (80-94); Mean Platelet Vol. 8.6 fl (6.2-12.0); Monocyte# 0.91 X10^3/uL; NRBC Flagged by Analyzer 0 % (0-5); Neutrophil % 41.6 % (47-70); Platelet Count 319 K/mm3 (150-450); RBC Distribution Width CV 12.6 % (11.6-14.6); Red Blood Count 5.07 M/mm3 (4.6-6.2); White Blood Count 6.5 K/mm3 (4.4-11.0)
[2020-03-02] MEDS: 0.9% Normal Saline 1,000 ML 150 ML IV (11:22)
[2020-03-02 11:27] LABS: ALB/GLOB Ratio 1.4 RATIO (0.9-2.4); AST(SGOT) 42 U/L (15-37); Alanine Aminotransfer ALT/SGPT 51 U/L (16-61); Albumin, Serum 4.6 g/dL (3.2-5.0); Alkaline Phosphatase 67 U/L (45-117); Anion Gap 7 (5-15); BUN 5 mg/dL (7-18); BUN/Creat Ratio 5.5 RATIO (10-20); Calcium,Total 8.4 mg/dL (8.5-10.1); Chloride 110 mmol/L (98-107); EST Glomerular Filtration Rate 100 mL/min (>60); Est Glom Filt Rate - Afr Amer 121 mL/min (>60); Estimated Creatinine Clearance 117.37 ml/min; Globulin 3.2 g/dL (2.2-4.2); Glucose 112 mg/dL (74-106); Potassium 3.9 mmol/L (3.5-5.1); Protein, Total 7.8 g/dL (6.4-8.2); Sodium Level 144 mmol/L (136-145)
[2020-03-02 12:48] VITALS: BP 131/97; PULSE 93; RESP 11; TEMP 36.6; O2SAT 96
[2020-03-02 13:20] LABS: Amphetamine Urine VISTA NEGATIVE (<1000 ng/mL); Barbiturate Urine VISTA NEGATIVE (< 200 ng/mL); Benzodiazepine Urine VISTA NEGATIVE (< 200 ng/mL); Cocaine Urine VISTA NEGATIVE (< 300 ng/mL); Ecstacy Urine VISTA NEGATIVE (< 500 ng/mL); Methadone Urine VISTA NEGATIVE (< 300 ng/mL); PCP Urine VISTA NEGATIVE (< 25 ng/mL); THC Urine VISTA NEGATIVE (< 50 ng/mL); Vista UDS pH Range 6
--- NOTE | 2020-03-02 13:27 | PCM.HP.STD ---
Problem List (1) Alcohol abuse Status: Chronic (2) Alcohol withdrawal Status: Acute Qualifiers: (3) Anxiety Status: Chronic (4) Tobacco use Status: Chronic History of Present Illness Date of Admission: 03/02/20 Chief Complaint: Acute alcohol intoxication/withdrawal requesting medical stabilization. The patient is a 40 year old M with past medical history as mentioned above presented to the emergency room requesting admission for acute alcohol intoxication/withdrawal for medical stabilization. Actually, patient was brought in to the ED by his father requesting admission for detox from alcohol abuse. At this time, father is not in the room and patient was alone. Patient mentioned that he has been drinking every day and his last drink was this morning. Apparently, patient was admitted 3 months ago for alcohol detoxification but he mentioned that he was sober on the for a week or so and he started drinking again. He mentioned that he followed up with the [facility] program just once or twice. At this time, he has no specific symptoms. He smokes cigarettes almost 1 pack every day. He denied use of illicit drugs. He denied shakiness or tremors. He denied abdominal pain, nausea or vomiting. He denied chest pain or shortness of breath. In the emergency department, his vital signs were stable. His routine blood work was unremarkable. LFT was unremarkable. Urine drug screen was negative. Blood alcohol level was 423. He is being admitted for acute alcohol intoxication/withdrawal for medical stabilization. Past Medical History Past Medical History (Chronic Problems): Chronic Problems Alcohol abuse (Chronic) Anxiety (Chronic) Tobacco use (Chronic) Allergies No Known Allergies Allergy (Verified 03/02/20 10:44) Home Medications: Ambulatory Orders Medication Instructions Recorded NK 03/02/20 Surgical History: - - Tonsillectomy. Psychiatric History: Anxiety Lives: Spouse/ Significant Other Smoking Status: Current some day smoker Tobacco Use: Cigarettes Alcohol: Heavy Drugs: None - *Family History Maternal History Items: - - Patient notes a maternal family history of heart disease. Patient notes a maternal grandfather with significant alcohol abuse history. Paternal History Items: - - Patient notes paternal family history of diabetes and colon cancer. Patient notes a paternal grandfather with significant alcohol abuse history. Review of Systems Constitutional: Denies: Anorexia, Chills, Fever, Weakness Eyes: Denies: Blurred vision, Conjunctivae Inflammation, Drainage, Redness HEENT: Denies: Difficulty Hearing, Dysphasia, Ear Pain, Eye Pain, Nasal Congestion, Sore Throat Cardiovascular: Denies: Chest Pain, Chest Pressure, Chest Tightness, Edema, Heaviness, Palpitations, Syncope Respiratory: Denies: Cough, Pleuritic Pain, Shortness of Breath, Sputum production, Wheezing Gastrointestinal: Denies: Abdominal Pain, Constipation, Diarrhea, Nausea, Vomiting Genitourinary: Denies: Dysuria, Frequency, Hematuria Musculoskeletal: Denies: Arm Pain, Back Pain, Foot Pain Skin: Denies: Dryness, Rash Neurological: Denies: Balance problems, Blurred vision, Double vision, Change in Speech, Slurred speech, Headaches, Incoordination, Numbness Psychiatric: Reports: Anxiety. Denies: Depression Endocrine: Denies: Change in Body Habitus, Polydipsia, Polyuria VTE Information - Inpt Only VTE Present on Admission: No VTE Mechan Device Prophylaxis: None VTE Pharm Prophylaxis ordered?: No - Physical Exam Vitals/I&O's: Vital Signs Temp Pulse Resp BP Pulse Ox 97.8 F 93 11 L 131/97 H 96 03/02/20 12:48 03/02/20 12:48 03/02/20 12:48 03/02/20 12:48 03/02/20 12:48 Oxygen Delivery Method Room Air Weight: 1280 lb Body Mass Index (BMI) 178.5 General: Alert, Oriented x3, Cooperative, No apparent distress, - - Slow in answering questions. HEENT: Atraumatic, PERRLA, EOMI, Normocephalic Oral: Moist Mucosa, No Gingival or Mucosal Lesions/ Ulcerations Neck: Supple, No JVD, Negative Carotid Bruits, Trachea Midline, Thyroid Normal Size and Texture Lungs: Clear to auscultation, Normal air movement, No rhonchi, No wheeze, No rales Cardiovascular: Regular rate, Regular Rhythm, Normal S1, Normal S2, No murmurs, PMI Normal Abdomen: Bowel Sounds Present, Soft, Non Tender, Non-Distended, No Hepato-splenomegaly Extremities: No clubbing, No cyanosis, No edema Skin: No rashes, No breakdown Lymphatic: No Cervical, Supraclavicular, or Inguinal Adenopathy Neurological: Cranial nerves II-XII grossly intact, Motor Exam 5/5 strength throughout Psych/Mental Status: Normal Affect, Appropriate, Alert and oriented to time, place, person, mood and affect Laboratory Results 03/02/20 10:55: WBC 6.5, RBC 5.07, Hgb 15.8, Hct 45.4, MCV 89.5, MCH 31.2, MCHC 34.8, RDW Std Deviation 41.0, RDW Coeff of Donovan 12.6, Plt Count 319, MPV 8.6, Immature Gran % (Auto) 0.300, Neut % (Auto) 41.6 L, Lymph % (Auto) 39.8, [place] % (Auto) 14.0 H, Eos % (Auto) 2.8, Baso % (Auto) 1.5 H, Absolute Neuts (auto) 2.7, Absolute Lymphs (auto) 2.58, Nucleated RBC % 0 03/02/20 10:55: Sodium 144, Potassium 3.9, Chloride 110 H, Carbon Dioxide 27.0, Anion Gap 7, BUN 5 L, Creatinine 0.90, Estim Creat Clear Calc 117.37, Est GFR (MDRD) Af Amer 121, Est GFR (MDRD) Non-Af 100, BUN/Creatinine Ratio 5.5 L, Glucose 112 H, Calcium 8.4 L, Total Bilirubin 0.40, AST 42 H, ALT 51, Alkaline Phosphatase 67, Total Protein 7.8, Albumin 4.6, Globulin 3.2, Albumin/Globulin Ratio 1.4 03/02/20 10:55: Ethyl Alcohol 423.0 H* 03/02/20 12:40: Urine Opiates Screen NEGATIVE, Urine Methadone Screen NEGATIVE, Ur Barbiturates Screen NEGATIVE, Ur Phencyclidine Scrn NEGATIVE, Ur Amphetamines Screen NEGATIVE, U Methamphetamin-MDMA NEGATIVE, U Benzodiazepines Scrn NEGATIVE, Urine Cocaine Screen NEGATIVE, U Cannabinoids Screen NEGATIVE, Ur Drug Screen Comment Current Medications Sodium Chloride () 1,000 mls @ 150 mls/hr IV .Q6H40M [facility] Last Admin: 03/02/20 11:22 Dose: 150 mls/hr Documented by: Assessment/Plan All Active Problems Alcohol withdrawal (Acute) This is a 40 years old male patient was brought to the ED by his father requesting admission for acute alcohol intoxication/withdrawal for medical stabilization. #1 acute alcohol intoxication/withdrawal: Patient was admitted for detox on October, but he relapsed quickly. Blood alcohol level is 423. Urine drug screen is negative. CBC, BMP and LFT was unremarkable. His vital signs are stable. Plan: Admit to MedSurg floor, initiate alcohol detox protocol with tapering phenobarbital, CIWA protocol, Ativan as needed, folic acid, thiamine, as needed Bentyl, Neurontin, Vistaril, Imodium, Zofran and trazodone, consult [facility] program. #2 tobacco abuse: NicoDerm patch. #3 anxiety: Currently not on treatment. Patient may need to follow-up with his PCP and counseling center upon discharge. #4 DVT prophylaxis: Low risk patient, no prophylaxis indicated. This note was generated with [employer] dictation software. It may contain incorrect words, spelling, and punctuation that were not noted in checking the note before signing. Inpatient E&M: 27441 Init Hosp L2
[2020-03-02 14:15] VITALS: BP 139/72; PULSE 64; RESP 15; O2SAT 97
[2020-03-02 15:37] VITALS: BMI 28.0
[2020-03-02 15:58] VITALS: BMI 22.6
[2020-03-02 16:03] VITALS: BP 123/91; PULSE 85; RESP 16; TEMP 37.1; O2SAT 100
--- NOTE | 2020-03-02 16:34 | PCS.PANDOC ---
PANDEMIC DOCUMENTATION INITIATED: Date: 01/01/20 Time: 6229
[2020-03-02] MEDS: Phenobarbital 32.4 MG Tablet 64.8 MG PO ×3 (16:41→23:28)
[2020-03-02 18:47] VITALS: BP 125/75; PULSE 101; RESP 16; TEMP 37.1; O2SAT 100
[2020-03-02 21:37] VITALS: BP 114/70; PULSE 81; RESP 16; TEMP 37.5; O2SAT 96
[2020-03-02] MEDS: LORazepam 1 MG Tablet 2 MG PO (21:45)
[2020-03-02] MEDS: traZODone 100 MG Tablet PO (21:49)
[2020-03-03] VITALS (7 sets, daily range): BP systolic 106–134; BP diastolic 62–84; PULSE 68–84; RESP 16–18; TEMP 36.6–37.3; O2SAT 97–100
--- NOTE | 2020-03-03 08:19 | PN_ITS ---
Patient Problems: Active and Suspected Problems Alcohol withdrawal (Acute) Subjective: Chief complaint: Follow-up after admission for acute alcohol intoxication/withdrawal. Patient seen and examined. No acute events overnight. This morning, he complained of muscle aches. No other symptoms. Slept okay last night. His vital signs are stable. - Physical Exam Vitals/I&O's: Vital Signs Temp Pulse Resp BP Pulse Ox 97.8 F 83 16 134/78 H 99 03/03/20 06:17 03/03/20 06:17 03/03/20 06:17 03/03/20 06:17 03/03/20 06:17 Oxygen Delivery Method Room Air Weight: 162 lb 7.691 oz Body Mass Index (BMI) 22.6 Intake and Output for Last 24 Hours 03/01/20 03/02/20 03/03/20 23:59 23:59 23:59 Intake Total 1510 / 1510 300 / 300 Output Total Balance 1509 / 1509 300 / 300 General: Alert, Oriented x3, Cooperative, No apparent distress HEENT: Atraumatic, PERRLA, EOMI, Normocephalic Oral: Moist Mucosa, No Gingival or Mucosal Lesions/ Ulcerations Neck: Supple, No JVD, Negative Carotid Bruits, Trachea Midline, Thyroid Normal Size and Texture Lungs: Clear to auscultation, Normal air movement, No rhonchi, No wheeze, No rales Cardiovascular: Regular rate, Regular Rhythm, Normal S1, Normal S2, PMI Normal Abdomen: Bowel Sounds Present, Soft, Non Tender, Non-Distended, No Hepato- splenomegaly Extremities: No clubbing, No cyanosis, No edema Skin: No rashes, No breakdown Lymphatic: No Cervical, Supraclavicular, or Inguinal Adenopathy Neurological: Cranial nerves II-XII grossly intact, Neuro grossly intact Psych/Mental Status: Normal Affect, Appropriate, Alert and oriented to time, place, person, mood and affect Laboratory Results 03/02/20 10:55: WBC 6.5, RBC 5.07, Hgb 15.8, Hct 45.4, MCV 89.5, MCH 31.2, MCHC 34.8, RDW Std Deviation 41.0, RDW Coeff of [place] 12.6, Plt Count 319, MPV 8.6, Immature Gran % (Auto) 0.300, Neut % (Auto) 41.6 L, Lymph % (Auto) 39.8, [place] % (Auto) 14.0 H, Eos % (Auto) 2.8, Baso % (Auto) 1.5 H, Absolute Neuts (auto) 2.7, Absolute Lymphs (auto) 2.58, Nucleated RBC % 0 03/02/20 10:55: Sodium 144, Potassium 3.9, Chloride 110 H, Carbon Dioxide 27.0, Anion Gap 7, BUN 5 L, Creatinine 0.90, Estim Creat Clear Calc 117.37, Est GFR (MDRD) Af Amer 121, Est GFR (MDRD) Non-Af 100, BUN/Creatinine Ratio 5.5 L, Glucose 112 H, Calcium 8.4 L, Total Bilirubin 0.40, AST 42 H, ALT 51, Alkaline Phosphatase 67, Total Protein 7.8, Albumin 4.6, Globulin 3.2, Albumin/Globulin Ratio 1.4 03/02/20 10:55: Ethyl Alcohol 423.0 H* 03/02/20 12:40: Urine Opiates Screen NEGATIVE, Urine Methadone Screen NEGATIVE, Ur Barbiturates Screen NEGATIVE, Ur Phencyclidine Scrn NEGATIVE, Ur Amphetamines Screen NEGATIVE, U Methamphetamin-MDMA NEGATIVE, U Benzodiazepines Scrn N EGATIVE, Urine Cocaine Screen NEGATIVE, U Cannabinoids Screen NEGATIVE, Ur Drug Screen Comment Current Medications Acetaminophen (Acetaminophen 500 Mg Tablet) 500 mg PO Q4H PRN PRN PRN Reason: Temp > 100.4 F Al Hydroxide/Mg Hydroxide (Mag Hydrox/Al Hydrox/Simeth 30 Ml Udc) 30 ml PO Q6H PRN PRN PRN Reason: dyspesia Dicyclomine HCl (Dicyclomine 10 Mg Capsule) 20 mg PO Q6H PRN PRN PRN Reason: abdominal discomfort Folic Acid (Folic Acid 1 Mg Tablet) 1 mg PO DAILY@0800 DEANNA Gabapentin (Gabapentin 300 Mg Capsule) 300 mg PO Q8H PRN PRN PRN Reason: moderate to severe anxiety Hydroxyzine Pamoate (Hydroxyzine [place] 25 Mg Capsule) 50 mg PO Q4H PRN PRN PRN Reason: mild anxiety Loperamide HCl (Loperamide 2 Mg Capsule) 2 mg PO Q4H PRN PRN PRN Reason: LOOSE STOOLS Lorazepam (Lorazepam 1 Mg Tablet) 2 mg PO Q2H PRN PRN; Protocol PRN Reason: CIWA score > 8 but <15 Last Admin: 03/02/20 21:45 Dose: 2 mg Documented by: Lorazepam (Lorazepam 1 Mg Tablet) 2 mg PO UD PRN; Protocol PRN Reason: CIWA score >/=15. Lorazepam (Lorazepam 2 Mg/Ml Syringe) 2 mg IV Q2H PRN PRN; Protocol PRN Reason: CIWA score > 8 but <15 Lorazepam (Lorazepam 2 Mg/Ml Syringe) 2 mg IV UD PRN; Protocol PRN Reason: CIWA score >/=15. Nicotine (Nicotine 21 Mg Patch) 21 mg TD DAILY DEANNA Last Admin: 03/02/20 19:34 Dose: 21 mg Documented by: Ondansetron HCl (Ondansetron 8 Mg Tablet) 8 mg PO Q8H PRN PRN PRN Reason: NAUSEA Phenobarbital (Phenobarbital 32.4 Mg Tablet) 97.2 mg PO Q4H DEANNA; Taper Stop: 03/06/20 23:59 Last Admin: 03/03/20 04:04 Dose: Not Given Documented by: Sodium Chloride (0.9% Saline Lock 10 Ml Syringe) 10 - 40 ml IV UD PRN PRN Reason: SALINE FLUSH Thiamine HCl (Thiamine Hydrochloride 100 Mg Tablet) 100 mg PO DAILYCM DEANNA Trazodone HCl (Trazodone 100 Mg Tablet) 100 mg PO QHS PRN PRN Reason: INSOMNIA Last Admin: 03/02/20 21:49 Dose: 100 mg Documented by: Medical Necessity - Tobacco Use Smoking Status: Current some day smoker Tobacco Use: Cigarettes Assessment/Plan All Active Problems Alcohol withdrawal (Acute) This is a 40 years old male patient was brought to the ED by his father requesting admission for acute alcohol intoxication/withdrawal for medical stabilization. #1 acute alcohol intoxication/withdrawal: He is on phenobarbital taper, as needed Ativan, thiamine, folic acid, as needed Bentyl, Neurontin, Vistaril, Imodium, Zofran and trazodone, consult [facility] program. Blood alcohol level was 423 on admission. Urine drug screen was negative. At this time, he has no significant withdrawal symptoms. Last drink was yesterday morning. Vital signs are stable. Plan to continue same treatment, to be seen by [facility] program. #2 tobacco abuse: NicoDerm patch. #3 anxiety: Currently not on treatment. Patient may need to follow-up with his PCP and counseling center upon discharge. #4 DVT prophylaxis: Low risk patient, no prophylaxis indicated. This note was generated with [employer] dictation software. It may contain incorrect words, spelling, and punctuation that were not noted in checking the note before signing. Inpatient E&M: 31565 Subs Hosp L2
[2020-03-03] MEDS: Phenobarbital 32.4 MG Tablet 64.8 MG PO ×5 (08:36→23:45)
[2020-03-03] MEDS: Thiamine Hydrochloride 100 MG Tablet PO (08:38)
[2020-03-03] MEDS: Folic Acid 1 MG Tablet PO (08:38)
--- NOTE | 2020-03-03 09:38 | ADDICTION ---
This mortgage underwriter met with patient in his room to conduct ASAM, MSE, AUDIT assessments and to plan for d/c. All completed documentation placed in patient's file and faxed to [facility]. Patient to follow-up with individual counselor at [facility] upon d/c. He rejected residential recommendation. Patient did not report a need for transportation upon d/c from [facility].
--- NOTE | 2020-03-03 14:03 | CASEMGMT ---
Social Work Note SW updated that RN spoke with pt's girlfriend today. Pt's girlfriend thought with pt's ETOH level being 423, pt had a suicide attempt. RN was going to call Melissa with [facility]. LOLITA reviewed Melissa with [facility]'s documentation. Pt denied any history/current suicidal ideations/thoughts. LOLITA also placed a call to Melissa at [facility]. Melissa confirms she spoke with RN. Melissa confirms that pt denied any history/current suicidal ideations to her when she spoke with pt today. Melissa states she also discussed with pt's primary counselor Nathalie who also states pt has no history of suicidal thoughts/ideations. Per Melissa, pt's counselor Nathalie will be seeing pt Saturday. Melissa states she will follow up with pt tomorrow. Jayleen Garcia SPECIALIST EMPLOYEE LABOR RELATIONS, ENGINEER TECHNICAL STAFF
--- NOTE | 2020-03-03 14:38 | NURSING ---
spoke with [facility] counselor about sig others' concern that the ETOH level in the 430 range was a suicidal gesture and that sig other is moving out while he is here and that she is concerned he may come home and take his own life, she is removing gun from home-nurse will also imform dr whitmore
--- NOTE | 2020-03-03 14:43 | CHAPLAIN ---
Type of Pastoral Visit _x__ Initial Visit ___ Follow-up Visit ___ On-call Visit ___ General Patient Visit ___ Spiritual Assessment ___ Family Conference ___ Bereavement ___ Rapid Response ___ Code Blue ___ Other (describe below) Pastoral Care Referral From _x__ Patient ___ Family ___ Nurse ___ Physician ___ Ict Support Technicians ___ Calender Let Off Operator ___ Other (describe below) Sacrament/Intervention _x__ Active listening ___ Anointing ___ Holiness ___ Bereavement ___ Communion _x__ Aiyana exploration ___ _x__ Life review _x__ Prayer ___ Reconciliation ___ Sacrament of Sick _x__ Supportive presence ___ Wedding ___ Other (describe below) Pastoral Comments patient welcoming of spiritual support and begins with much life review and emotional perspective of his life and struggles with alcoholism; pt reports many good aspects of his life but feels he will be losing some of that due to his behavior and alcohol addiction; pt has been to numerous treatment centers and hundreds of AA groups by self report; pt states that there is something missing yet for success; explored with pt his feelings, thoughts, and spiritual resources; offered phone contacts for aiyana based recovery options; pt identifies as a Buddhism of the [employer] tradition; prayer welcomed; pt would welcome future visits for spiritual care support if possible; pt expressed thanks for the visit and time spent to help him talk about his needs
[2020-03-03] MEDS: traZODone 100 MG Tablet PO (23:50)
[2020-03-04 04:09] VITALS: BP 109/75; PULSE 70; RESP 16; TEMP 36.8; O2SAT 98
[2020-03-04] MEDS: Phenobarbital 32.4 MG Tablet 64.8 MG PO ×6 (04:13→23:46)
[2020-03-04 08:26] VITALS: BP 113/74; PULSE 74; RESP 18; TEMP 36.7; O2SAT 97
[2020-03-04] MEDS: Folic Acid 1 MG Tablet PO (08:29)
[2020-03-04] MEDS: Thiamine Hydrochloride 100 MG Tablet PO (08:30)
--- NOTE | 2020-03-04 08:41 | PCM.PROGNOTE ---
Patient Problems: Active and Suspected Problems Alcohol withdrawal (Acute) Subjective: Chief complaint: Follow-up after admission for acute alcohol withdrawal. Patient seen and examined. No acute events overnight. Today, he has a complaints, he is feeling better. He was able to sleep last night. I spoke with the patient about any depression issues. He stated that he has no depression, denied suicidal or homicidal ideations or intentions. Vital signs are stable. - Physical Exam Vitals/I&O's: Vital Signs Temp Pulse Resp BP Pulse Ox 98.0 F 74 18 113/74 97 03/04/20 08:26 03/04/20 08:26 03/04/20 08:26 03/04/20 08:26 03/04/20 08:26 Oxygen Delivery Method Room Air Weight: 162 lb 7.691 oz Body Mass Index (BMI) 22.6 Intake and Output for Last 24 Hours 03/02/20 03/03/20 03/04/20 23:59 23:59 23:59 Intake Total 1510 / 1510 1500 / 1500 500 / 500 Output Total Balance 1509 / 1509 1500 / 1500 500 / 500 General: Alert, Oriented x3, Cooperative, No apparent distress HEENT: Atraumatic, PERRLA, EOMI, Normocephalic Oral: Moist Mucosa, No Gingival or Mucosal Lesions/ Ulcerations Neck: Supple, No JVD, Negative Carotid Bruits, Trachea Midline, Thyroid Normal Size and Texture Lungs: Clear to auscultation, No rhonchi, No wheeze, No rales Cardiovascular: Regular rate, Regular Rhythm, Normal S1, Normal S2, No murmurs, PMI Normal Abdomen: Bowel Sounds Present, Soft, Non Tender, Non-Distended, No Hepato-splenomegaly Extremities: No clubbing, No cyanosis, No edema Skin: No rashes, No breakdown Lymphatic: No Cervical, Supraclavicular, or Inguinal Adenopathy Neurological: Cranial nerves II-XII grossly intact, Neuro grossly intact Psych/Mental Status: Normal Affect, Appropriate Current Medications Acetaminophen (Acetaminophen 500 Mg Tablet) 500 mg PO Q4H PRN PRN PRN Reason: Temp > 100.4 F Al Hydroxide/Mg Hydroxide (Mag Hydrox/Al Hydrox/Simeth 30 Ml Udc) 30 ml PO Q6H PRN PRN PRN Reason: dyspesia Dicyclomine HCl (Dicyclomine 10 Mg Capsule) 20 mg PO Q6H PRN PRN PRN Reason: abdominal discomfort Folic Acid (Folic Acid 1 Mg Tablet) 1 mg PO DAILY@0800 [facility] Last Admin: 03/04/20 08:29 Dose: 1 mg Documented by: Gabapentin (Gabapentin 300 Mg Capsule) 300 mg PO Q8H PRN PRN PRN Reason: moderate to severe anxiety Hydroxyzine Pamoate (Hydroxyzine Stephanie 25 Mg Capsule) 50 mg PO Q4H PRN PRN PRN Reason: mild anxiety Loperamide HCl (Loperamide 2 Mg Capsule) 2 mg PO Q4H PRN PRN PRN Reason: LOOSE STOOLS Lorazepam (Lorazepam 1 Mg Tablet) 2 mg PO Q2H PRN PRN; Protocol PRN Reason: CIWA score > 8 but <15 Last Admin: 03/02/20 21:45 Dose: 2 mg Documented by: Lorazepam (Lorazepam 1 Mg Tablet) 2 mg PO UD PRN; Protocol PRN Reason: CIWA score >/=15. Lorazepam (Lorazepam 2 Mg/Ml Syringe) 2 mg IV Q2H PRN PRN; Protocol PRN Reason: CIWA score > 8 but <15 Lorazepam (Lorazepam 2 Mg/Ml Syringe) 2 mg IV UD PRN; Protocol PRN Reason: CIWA score >/=15. Nicotine (Nicotine 21 Mg Patch) 21 mg TD DAILY [facility] Last Admin: 03/04/20 08:30 Dose: 21 mg Documented by: Ondansetron HCl (Ondansetron 8 Mg Tablet) 8 mg PO Q8H PRN PRN PRN Reason: NAUSEA Phenobarbital (Phenobarbital 32.4 Mg Tablet) 64.8 mg PO Q4H [facility]; Taper Stop: 03/06/20 23:59 Last Admin: 03/04/20 08:29 Dose: 64.8 mg Documented by: Sodium Chloride (0.9% Saline Lock 10 Ml Syringe) 10 - 40 ml IV UD PRN PRN Reason: SALINE FLUSH Thiamine HCl (Thiamine Hydrochloride 100 Mg Tablet) 100 mg PO DAILYCM [facility] Last Admin: 03/04/20 08:30 Dose: 100 mg Documented by: Trazodone HCl (Trazodone 100 Mg Tablet) 100 mg PO QHS PRN PRN Reason: INSOMNIA Last Admin: 03/03/20 23:50 Dose: 100 mg Documented by: Medical Necessity - Tobacco Use Smoking Status: Current some day smoker Tobacco Use: Cigarettes Assessment/Plan All Active Problems Alcohol withdrawal (Acute) This is a 40 years old male patient was brought to the ED by his father requesting admission for acute alcohol intoxication/withdrawal for medical stabilization. #1 acute alcohol intoxication/withdrawal: Remained on phenobarbital taper, as needed Ativan, thiamine, folic acid, as needed Bentyl, Neurontin, Vistaril, Imodium, Zofran and trazodone, consult [facility] program. He is doing fine, has no significant withdrawal symptoms. Vital signs are stable. He denied issues with depression, suicidal or homicidal ideations. Plan to continue same treatment, DC home tomorrow. #2 tobacco abuse: NicoDerm patch. #3 anxiety: Currently not on treatment. Patient may need to follow-up with his PCP and counseling center upon discharge. #4 DVT prophylaxis: Low risk patient, no prophylaxis indicated. This note was generated with [employer] dictation software. It may contain incorrect words, spelling, and punctuation that were not noted in checking the note before signing. Inpatient E&M: 43359 Subs Hosp L2
--- NOTE | 2020-03-04 11:00 | ADDICTION ---
This credit underwriter met with patient in his room. This credit underwriter was informed by [facility] staff that patient's girlfriend called and reported a potential for (patient) SI following d/c from [facility]. Physician, nurse and this credit underwriter have spoken to pt who denies any SI. Patient able to identify supportive persons/factors in his life, has obtained transportation for d/c, and states that he is not feeling any urges to hurt himself. He was allowed time to contact his parents, with this credit underwriter present, and appears to have a solid support system following d/c.
[2020-03-04 16:00] VITALS: BP 125/85; PULSE 80; RESP 18; TEMP 36.6; O2SAT 95
[2020-03-04] MEDS: traZODone 100 MG Tablet PO (22:29)
[2020-03-04 22:31] VITALS: BP 116/69; PULSE 78; RESP 16; TEMP 36.6; O2SAT 100
[2020-03-05 05:18] VITALS: BP 105/70; PULSE 75; RESP 16; TEMP 36.4; O2SAT 98
[2020-03-05] MEDS: Phenobarbital 32.4 MG Tablet 64.8 MG PO (05:20)
--- NOTE | 2020-03-05 08:23 | DCINST_ITS ---
- Discharge Diagnoses Current Active Problems: Current Active and Chronic Problems Alcohol abuse (Chronic) Alcohol withdrawal (Acute) Anxiety (Chronic) Tobacco use (Chronic) You will use the following diet at home:: Regular Your food should be the consistency of: Regular Discharge Activity: Return to Normal Activity Weight Bearing Status: Full weight bearing Call your doctor if you observe: Fever of 101 or Higher, Shortness of breath, Dizziness, Fainting spells, Chest pain, Increased palpitations (irregular heartbeat), Uncontrolled pain Instructions: Alcoholism: Getting Help, Alcoholism: How to be Part of the Solution, Recovering from Addiction: Continuing with Counseling, Recovering from Addiction: Coping with Relapse Additional Instructions: Please follow-up with the [facility] program as scheduled. Allergies/Adverse Reactions: Allergies No Known Allergies Allergy (Verified 03/02/20 10:44) Medications to take at Discharge Folic Acid 1 mg PO DAILY@0800 #30 tab 03/05/20 Thiamine Hydrochloride [Vitamin B1] 100 mg PO DAILYCM #30 tab 03/05/20 The following prescriptions were given: Folic Acid 1 mg PO DAILY@0800 #30 tab Transmission Status: Pending to [id number] Thiamine Hydrochloride [Vitamin B1] 100 mg PO DAILYCM #30 tab Transmission Status: Pending to [id number] Primary Care Physician: Care Physician,No Primary [Primary Care Provider] - Please follow up with your Primary Care Physician in: 2-3 weeks. Test Results: Test results from this visit will be discussed in further detail at your follow- up appointment, if applicable.
[2020-03-05 09:48] VITALS: BP 127/84; PULSE 99; RESP 18; TEMP 36.6; O2SAT 99
[2020-03-05] MEDS: Folic Acid 1 MG Tablet PO (09:52)
[2020-03-05] MEDS: Thiamine Hydrochloride 100 MG Tablet PO (09:52)
[2020-03-05] MEDS: Gabapentin 300 MG Capsule PO (09:54)
[2020-03-05 10:15] VITALS: BP 127/84; PULSE 99; RESP 18; TEMP 36.6; O2SAT 99
--- NOTE | 2020-03-05 12:05 | PCM.DC.SUM ---
Discharge Date and Diagnosis - Problem List Patient Problems: Active and Suspected Problems Alcohol withdrawal (Acute) Date of Admission: 03/02/20 Date of Discharge: 03/05/20 - Primary Discharge Diagnosis Acute Problems: Active Problems Acute alcohol intoxication/withdrawal, admitted for medical stabilization. - Secondary Discharge Diagnosis Chronic Problems: Chronic Problems Alcohol abuse (Chronic) Anxiety (Chronic) Tobacco use (Chronic) Hospital Course and Treatment Operations: None Procedures: None Summary of Care Provided: Patient seen and examined on the day of discharge and appeared to be stable to be discharged home. He has no withdrawal symptoms. His vital signs are stable. The patient is a 40 year old M who was brought to the emergency department by his father requesting admission for acute alcohol intoxication/withdrawal for medical stabilization. Upon admission, his blood level of alcohol was 423. Urine drug screen was negative. His routine blood work was unremarkable. Patient was treated with phenobarbital taper, as needed Ativan, thiamine, folic acid, as needed Bentyl, Neurontin, Vistaril, Imodium, Zofran and trazodone. Initially, he did have withdrawal symptoms including anxiety and tremors. With treatment his symptoms improved. He was evaluated by [facility] program. Patient denies any issues with depression, suicidal or homicidal ideations or intentions. He did very well. Patient discharged home in a stable condition, discharged on thiamine and folic acid, plan to follow-up with [facility] program as outpatient on March 07, 2020, recommended follow-up with PCP in 2 to 3 weeks. Patient Problems: Active and Suspected Problems Alcohol withdrawal (Acute) - Physical Exam Vitals/I&O's: Vital Signs Temp Pulse Resp BP Pulse Ox 97.8 F 99 18 127/84 H 99 03/05/20 10:15 03/05/20 10:15 03/05/20 10:15 03/05/20 10:15 03/05/20 10:15 Oxygen Delivery Method Room Air Weight: 162 lb 7.691 oz Body Mass Index (BMI) 22.6 Intake and Output for Last 24 Hours 03/03/20 03/04/20 03/05/20 23:59 23:59 23:59 Intake Total 1500 / 1500 1100 / 1100 Balance 1500 / 1500 1100 / 1100 General: Alert, Oriented x3, Cooperative, No apparent distress HEENT: Atraumatic, PERRLA, EOMI, Normocephalic Oral: Moist Mucosa, No Gingival or Mucosal Lesions/ Ulcerations Neck: Supple, No JVD, Negative Carotid Bruits, Trachea Midline, Thyroid Normal Size and Texture Lungs: Clear to auscultation, Normal air movement, No rhonchi, No wheeze, No rales Cardiovascular: Regular rate, Regular Rhythm, Normal S1, Normal S2, PMI Normal Abdomen: Bowel Sounds Present, Soft, Non Tender, Non-Distended, No Hepato-splenomegaly Extremities: No clubbing, No cyanosis, No edema Skin: No rashes, No breakdown Lymphatic: No Cervical, Supraclavicular, or Inguinal Adenopathy Neurological: Cranial nerves II-XII grossly intact, Neuro grossly intact Psych/Mental Status: Normal Affect, Appropriate Discharge Activity: Return to Normal Activity Weight Bearing Status: Full weight bearing Call your doctor if you observe: Fever of 101 or Higher, Shortness of breath, Dizziness, Fainting spells, Chest pain, Increased palpitations (irregular heartbeat), Uncontrolled pain Home Medications: Medications to take at Discharge Folic Acid 1 mg PO DAILY@0800 #30 tab 03/05/20 Thiamine Hydrochloride [Vitamin B1] 100 mg PO DAILYCM #30 tab 03/05/20 Following Prescriptions Were Given to Patient: Folic Acid 1 mg PO DAILY@0800 #30 tab Transmission Status: Received by [facility][id number] Thiamine Hydrochloride [Vitamin B1] 100 mg PO DAILYCM #30 tab Transmission Status: Received by [facility] [employer] [facility] #[id number] Primary Care Physician: Care Physician,No Primary [Primary Care Provider] - Please follow up with your Primary Care Physician in: 2-3 weeks. Patient Instructions: Alcoholism: How to be Part of the Solution, Alcoholism: Getting Help, Recovering from Addiction: Continuing with Counseling, Recovering from Addiction: Coping with Relapse Disposition: Home Minutes spent on discharge:: 26 Patient Condition:: Stable Medical Necessity - Tobacco Use Smoking Status: Current some day smoker Tobacco Use: Cigarettes Meaningful Use Info Meaningful Use Diagnoses (Choose all that apply): None applicable Inpatient E&M: 92073 [facility] Hosp
== END 2020-03-05 10:15 | disposition home or self-care (01) | DRG 897 ==
LOC: ED 12:37 → MS3 15:38
PROVIDERS: Admitting Provider Hospitalist; Emergency Provider Emergency Medicine; Visit Provider Hospitalist
DX: F10.229 Alcohol dependence with intoxication, unspecified (principal); F10.239 Alcohol dependence with withdrawal, unspecified; Y90.8 Blood alcohol level of 240 mg/100 ml or more; F41.9 Anxiety disorder, unspecified; F17.210 Nicotine dependence, cigarettes, uncomplicated; Z80.0 Family history of malignant neoplasm of digestive organs; Z82.49 Family history of ischemic heart disease and other diseases of the circulatory system; Z83.3 Family history of diabetes mellitus
CPT/HCPCS: 80053; 80307; 80320; 85025; 99285; 99406; J7030; A4216; G0480

== ENCOUNTER 2020-05-03 15:59 | Inpatient (IN) | payer MEDICAID, SELFPAY ==
[2020-05-03 15:59] VITALS: BP 138/95; PULSE 103; RESP 14; TEMP 36.6; O2SAT 97; BMI 23.6
--- NOTE | 2020-05-03 16:32 | ED.VIS.GEN ---
History of Present Illness Chief Complaint: Substance Abuse Informant: Patient Onset: Month(s) Current Severity: Mild Maximum Severity: Mild Narrative: Patient presents asking for alcohol detox, he has a long history of alcohol abuse as he drinks 1 bottle of gin a day denies any illicit drug use, no past history no meds history of cirrhosis, he is being seen through the [address] [place] [address] to be evaluated for residential therapy before he can go there he needs to be admitted for detox, he believes he was admitted here about 3 months ago for detox completed inpatient detox and then failed to follow-up with outpatient began drinking again. No coronavirus exposures no other complaints review of systems negative Past Medical History - Allergies and Home Meds Allergies/Adverse Reactions: Allergies No Known Allergies Allergy (Verified 03/02/20 10:44) Primary Care Physician: Care Physician,No Primary [Primary Care Provider] - Past Medical History: - Surgical History: - - Tonsillectomy. Smoking Status: Current every day smoker - Family History Maternal Family History: Reports: - - Patient notes a maternal family history of heart disease. Patient notes a maternal grandfather with significant alcohol abuse history. Paternal Family History: Reports: - - Patient notes paternal family history of diabetes and colon cancer. Patient notes a paternal grandfather with significant alcohol abuse history. Review of Systems ROS: - Alcohol abuse General: Reports: - - Last drink was just about an hour ago. Denies: Chills, Fever, Sweats Eyes: Denies: Visual changes - bilaterally, Diplopia ENT: Denies: Rhinorrhea, Sore throat Cardiovascular: Denies: Chest pain, Palpitations Respiratory: Denies: Dyspnea, Cough, Dyspnea on exertion Gastrointestinal: Denies: Abdominal pain, Nausea, Vomiting, Diarrhea, Melena, Hematochezia Genitourinary: Denies: Dysuria, Hematuria, Frequency Musculoskeletal: Denies: Back pain, Extremity Pain Skin: Denies: Rash, Wounds Neurological: Denies: Headache, Weakness, Numbness Physical Exam Vital Signs/Narrative: Vital Signs Temp Pulse Resp BP Pulse Ox 05/03/20 15:59 97.9 F 103 H 14 138/95 H 97 General: Well nourished, Well developed, No Acute Distress Head: Normocephalic, Atraumatic Eyes: Perrl, EOMI ENT: Moist mucous membranes, No rhinorrhea Neck: Supple, Nontender Cardiovascular: Regular rate, Regular rhythm, No murmurs Respiratory: No distress, CTA bilaterally, Chest nontender Abdomen: Soft, Nontender, Nondistended, Normal bowel sounds Back: Nontender, Normal Inspection Extremities: Nontender, No edema Skin: Normal color, No rash Neurological: Alert, Oriented x3, Cranial nerves II-XII grossly intact, Normal Strength, Normal Sensation, - - He appears intoxicated he is awake and alert moving all 4 extremities NIH 0 cooperative Psychological: Normal affect, Normal Mood Diagnostic/Tx/Re-eval - Medical Decision Making Alcohol abuse requesting inpatient detox to follow-up with residential outpatient ED screening evaluation will discuss appropriate protocols and criteria with hospitalist team, ED screening evaluation is generally unremarkable see those results alcohol level is pending he remains hemodynamically stable here in the department, spoke with the hospitalist team will arrange for admission see their evaluation, at this time I do not believe a Covid screen is necessary but they will make that assessment when he seen Disposition pending hospitalist, Final impression alcohol abuse requesting detox ED Disposition - Plan for ED Patient: Diagnosis: Alcohol abuse Instructions: ED Withdrawal Alcohol, ED Alcohol Abuse Referrals: Care Physician,No Primary [Primary Care Provider] -
[2020-05-03 17:06] LABS: Absolute Lymphocyte Count 1.98 X10^3/uL (0.83-4.51); Absolute Neutrophil Count 3.1 X10^3/uL (2.0-7.7); Basophil# 0.04 X10^3/uL; Basophil% 0.7 % (0-1); Eosinophil# 0.16 X10^3/uL; Eosinophils% 2.8 % (0-5); Hematocrit 48.2 % (40-54); Hemoglobin 16.3 g/dL (13.0-16.5); Lymphocyte # 1.98 X10^3/ul (4.0); Lymphocyte % 34.6 % (19-41); Mean Corp Hgb Conc 33.8 g/dL (32-36); Mean Corpuscular Hgb 31.2 pg (27.0-32.0); Mean Corpuscular Volume 92.2 fL (80-94); Mean Platelet Vol. 8.5 fl (6.2-12.0); Monocyte# 0.39 X10^3/uL; Monocyte% 6.8 % (0-10); NRBC Flagged by Analyzer 0 % (0-5); Neutrophil # 3.14 X10^3/uL (2.7-7.7); Neutrophil % 54.8 % (47-70); Platelet Count 169 K/mm3 (150-450); RBC Distribution Width CV 12.5 % (11.6-14.6); RBC Distribution Width SD 42.6 fl (35.1-43.9); Red Blood Count 5.23 M/mm3 (4.6-6.2); White Blood Count 5.7 K/mm3 (4.4-11.0)
[2020-05-03 17:19] LABS: Anion Gap 5 (5-15); BUN 7 mg/dL (7-18); BUN/Creat Ratio 8.3 RATIO (10-20); Calcium,Total 8.5 mg/dL (8.5-10.1); Chloride 103 mmol/L (98-107); Creatinine, Serum 0.85 mg/dL (0.70-1.30); EST Glomerular Filtration Rate 107 mL/min (>60); Est Glom Filt Rate - Afr Amer 129 mL/min (>60); Estimated Creatinine Clearance 124.27 ml/min; Glucose 108 mg/dL (74-106); Potassium 3.7 mmol/L (3.5-5.1); Sodium Level 138 mmol/L (136-145)
[2020-05-03 17:20] LABS: Amphetamine Urine VISTA NEGATIVE (<1000 ng/mL); Barbiturate Urine VISTA NEGATIVE (< 200 ng/mL); Benzodiazepine Urine VISTA NEGATIVE (< 200 ng/mL); Cocaine Urine VISTA NEGATIVE (< 300 ng/mL); Ecstacy Urine VISTA NEGATIVE (< 500 ng/mL); Methadone Urine VISTA NEGATIVE (< 300 ng/mL); PCP Urine VISTA NEGATIVE (< 25 ng/mL); THC Urine VISTA NEGATIVE (< 50 ng/mL); Vista UDS pH Range 6
--- NOTE | 2020-05-03 17:49 | NURSING ---
MED SURG AMARI ALCOHOL ABUSE REQUIRING DETOX
[2020-05-03 18:01] VITALS: BMI 23.6
--- NOTE | 2020-05-03 18:07 | PCM.HP.STD ---
Problem List (1) Chronic alcohol use and dependence Status: Acute (2) Alcohol withdrawal Status: Acute Qualifiers: Complication of substance-induced condition: with delirium Qualified Code(s): F10.231 - Alcohol dependence with withdrawal delirium (3) Anxiety Status: Chronic (4) Tobacco use Status: Chronic History of Present Illness Date of Admission: 05/03/20 Chief Complaint: Came to ED with alcohol intoxication The patient is a 40 year old M with history of chronic alcohol use came to ER for alcohol detoxification. Patient usually drinks 1 bottle of gin and vodka daily. Patient last drink was about 3 PM today. Currently his eyes are red, looks restless and anxious. He was admitted in February 2020 for acute alcohol withdrawal syndrome but did not follow-up for outpatient alcohol rehab and relapsed. Patient denies any prior GI bleed, hematemesis/melena or jaundice. Denies substance use including opioids, heroin, meth, cocaine. He smokes cigarettes about a pack daily. In ED, heart rate 103 per note, blood pressure 138/95. Basic blood work shows glucose 108, AST 54, ALT 47. Serum alcohol level 469. [] Past Medical History Past Medical History (Chronic Problems): Chronic Problems Anxiety (Chronic) Tobacco use (Chronic) Allergies No Known Allergies Allergy (Verified 03/02/20 10:44) Home Medications: Ambulatory Orders Medication Instructions Recorded Folic Acid 1 mg PO DAILY@0800 #30 tab 03/05/20 Thiamine Hydrochloride [Vitamin B1] 100 mg PO DAILYCM #30 tab 03/05/20 Ascorbic Acid [Vitamin C] 1,000 mg PO DAILY 05/03/20 Cholecalciferol (VIT D3) [Vitamin 1,000 unit PO DAILY 05/03/20 D] Surgical History: - - Tonsillectomy. Psychiatric History: Anxiety Smoking Status: Current every day smoker Tobacco Use: Cigarettes - *Family History Maternal History Items: - - Patient notes a maternal family history of heart disease. Patient notes a maternal grandfather with significant alcohol abuse history. Paternal History Items: - - Patient notes paternal family history of diabetes and colon cancer. Patient notes a paternal grandfather with significant alcohol abuse history. Review of Systems Constitutional: Reports: Anorexia, Weakness, Fatigue. Denies: Chills, Fever, Weight Change HEENT: Denies: Head Aches, Sinus Congestion, Sinus Drainage Cardiovascular: Denies: Chest Pain, Palpitations Respiratory: Denies: Cough, Shortness of breath at rest, Sputum production Gastrointestinal: Denies: Abdominal Pain, Nausea, Vomiting Genitourinary: Denies: Dysuria Musculoskeletal: Denies: Joint Pain, Joint Tenderness Skin: Denies: Rash, Wounds Neurological: Denies: Numbness, Tingling, Focal weakness Psychiatric: Reports: Anxiety. Denies: Depression, Homicidal Ideations, Suicidal Ideations Hematologic/ Lymphatic: Denies: Easy Bruising, Easy Bleeding VTE Information - Inpt Only VTE Present on Admission: No VTE Mechan Device Prophylaxis: None VTE Pharm Prophylaxis ordered?: No Reason prophylaxis not ordered:: Procedure Not Indicated - Low risk. Objective: Physical exam General: Alert, Oriented x3, Cooperative HEENT: Atraumatic, PERRLA, EOMI, Normocephalic Oral: No Gingival or Mucosal Lesions/ Ulcerations Neck: Supple, No JVD, Negative Carotid Bruits Lungs: Air entry diminished in bilateral lung bases. No crepitation/rhonchi Cardiovascular: Regular rate, Regular Rhythm, Normal S1, Normal S2, No murmurs Abdomen: Bowel Sounds Present, Soft, Non Tender, Non-Distended : No renal angle tenderness. No suprapubic tenderness. Extremities: No edema, Capillary Refill Less than 3 Seconds Skin: No rashes, No breakdown Musculoskeletal: No Tenderness to Palpation of Joints or Extremities Neurological: Cranial nerves II-XII grossly intact, Deep Tendon Reflexes 2+/4 and Symmetrical, Neuro grossly intact Psych/Mental Status: Anxious and restless. - Physical Exam Vitals/I&O's: Vital Signs Temp Pulse Resp BP Pulse Ox 97.9 F 103 H 14 138/95 H 97 05/03/20 15:59 05/03/20 15:59 05/03/20 15:59 05/03/20 15:59 05/03/20 15:59 Oxygen Delivery Method Room Air Weight: 169 lb 1.513 oz Body Mass Index (BMI) 23.6 Laboratory Results 05/03/20 16:50: Urine Opiates Screen NEGATIVE, Urine Methadone Screen NEGATIVE, Ur Barbiturates Screen NEGATIVE, Ur Phencyclidine Scrn NEGATIVE, Ur Amphetamines Screen NEGATIVE, U Methamphetamin-MDMA NEGATIVE, U Benzodiazepines Scrn NEGATIVE, Urine Cocaine Screen NEGATIVE, U Cannabinoids Screen NEGATIVE, Ur Drug Screen Comment 05/03/20 16:55: WBC 5.7, RBC 5.23, Hgb 16.3, Hct 48.2, MCV 92.2, MCH 31.2, MCHC 33.8, RDW Std Deviation 42.6, RDW Coeff of Donovan 12.5, Plt Count 169, MPV 8.5, Immature Gran % (Auto) 0.300, Neut % (Auto) 54.8, Lymph % (Auto) 34.6, [place] % (Auto) 6.8, Eos % (Auto) 2.8, Baso % (Auto) 0.7, Absolute Neuts (auto) 3.1, Absolute Lymphs (auto) 1.98, Nucleated RBC % 0 05/03/20 16:55: Sodium 138, Potassium 3.7, Chloride 103, Carbon Dioxide 30.0, Anion Gap 5, BUN 7, Creatinine 0.85, Estim Creat Clear Calc 124.27, Est GFR (MDRD) Af Amer 129, Est GFR (MDRD) Non-Af 107, BUN/Creatinine Ratio 8.3 L, Glucose 108 H, Calcium 8.5 05/03/20 16:55: Ethyl Alcohol 469.0 H* 05/03/20 16:55: Total Bilirubin Pending, Direct Bilirubin Pending, AST Pending, ALT Pending, Alkaline Phosphatase Pending, Total Protein Pending, Albumin Pending Assessment/Plan All Active Problems Chronic alcohol use and dependence (Acute) Alcohol withdrawal (Acute) This is a 40-year-old gentleman is admitted for management of alcohol withdrawal syndrome after chronic alcohol use with dependence. Currently he is intoxicated. 1. Acute alcohol intoxication, high risk and probability of withdrawal syndrome: Patient is being admitted on MedSurg floor. On phenobarbitone scheduled and then taper as per protocol. Patient on thiamine, folic acid, as needed Neurontin, Vistaril, Bentyl, Imodium, Zofran and trazodone as needed for symptom management. [facility] program is being consulted. CIWA monitoring. Vital signs shows mild sinus tachycardia. 2. Chronic cigarette/nicotine use and dependence: Nicotine patch. 3. Chronic anxiety: Patient is not on antianxiety medication. 4. VTE prophylaxis, low risk. No prophylaxis indicated. Early ambulation encouraged. Inpatient E&M: 83102 Init Hosp L3
[2020-05-03 18:08] LABS: AST(SGOT) 54 U/L (15-37); Alanine Aminotransfer ALT/SGPT 47 U/L (16-61); Albumin, Serum 4.7 g/dL (3.2-5.0); Alkaline Phosphatase 64 U/L (45-117); Bilirubin, Direct 0.19 mg/dL (0.00-0.30); Globulin 3.6 g/dL (2.2-4.2); Protein, Total 8.3 g/dL (6.4-8.2)
--- NOTE | 2020-05-03 18:15 | CM.ED ---
Social Work Patient [facility] Telephone call to [facility] treatment navigator, Erin. Carissa LIZARRAGA, ABNER-Chrissy
--- NOTE | 2020-05-03 18:28 | PCS.PANDOC ---
PANDEMIC DOCUMENTATION INITIATED: Date: 02/29/2020 Time:
[2020-05-03 18:32] VITALS: BMI 23.6
[2020-05-03 18:33] LABS: Phosphorus 3.4 mg/dL (2.5-4.9)
[2020-05-03 18:35] VITALS: BP 129/86; PULSE 95; RESP 18; TEMP 36.7; O2SAT 98
[2020-05-03 18:52] LABS: International Normalized Ratio 0.9; Prothrombin Time (Protime)PT. 11.6 SECONDS (11.7-14.9)
[2020-05-03] MEDS: 0.9% Saline Lock 10 ML Syringe IV (19:50)
[2020-05-03] MEDS: Lactated Ringers 1,000 ML 125 ML IV (19:50)
[2020-05-03] MEDS: Phenobarbital 32.4 MG Tablet 64.8 MG PO (20:48)
[2020-05-03 22:33] VITALS: BP 120/75; PULSE 88; RESP 18; TEMP 36.9; O2SAT 98
[2020-05-03] MEDS: traZODone 100 MG Tablet PO (22:35)
[2020-05-04] MEDS: Phenobarbital 32.4 MG Tablet 64.8 MG PO ×6 (00:34→20:57)
[2020-05-04 03:56] VITALS: BP 111/61; PULSE 74; RESP 18; TEMP 36.6; O2SAT 100
[2020-05-04] MEDS: Thiamine Hydrochloride 100 MG Tablet PO (08:24)
[2020-05-04] MEDS: Folic Acid 1 MG Tablet PO (08:24)
[2020-05-04 09:10] VITALS: BP 131/71; PULSE 80; RESP 18; TEMP 36.6; O2SAT 96
--- NOTE | 2020-05-04 09:44 | CASEMGMT ---
Social Work Note SW received call from Melissa at [facility] stating pt's plan is to direct admit to [facility] and Melissa is working on this. Melissa states she will be in tomorrow and will bring in paperwork for pt. Jayleen Garcia HEALTHCARE APPLICATIONS ANALYST, RESTAURANT HOST/HOSTESS
--- NOTE | 2020-05-04 11:30 | PCM.PROGNOTE ---
Patient Problems: Active and Suspected Problems Chronic alcohol use and dependence (Acute) Alcohol withdrawal (Acute) Subjective: Patient was seen and examined today, he states he is willing to go into an inpatient alcohol detox program at this time. Patient has been here several times over the past 6 months for alcohol detox services. Patient has no complaints of any tremor, muscle aches, or diarrhea. - Physical Exam Vitals/I&O's: Vital Signs Temp Pulse Resp BP Pulse Ox 97.9 F 80 18 131/71 H 96 05/04/20 09:10 05/04/20 09:10 05/04/20 09:10 05/04/20 09:10 05/04/20 09:10 Oxygen Delivery Method Room Air Weight: 76.7 kg Body Mass Index (BMI) 23.6 Intake and Output for Last 24 Hours 05/02/20 05/03/20 05/04/20 23:59 23:59 23:59 Intake Total 500 / 500 1300 / 1300 Balance 500 / 500 1300 / 1300 General: Alert, Oriented x3, Cooperative, No apparent distress, Well developed HEENT: Atraumatic, PERRLA, EOMI, Normocephalic Oral: Moist Mucosa Neck: Supple, No JVD, Trachea Midline, Thyroid Normal Size and Texture Lungs: Clear to auscultation, Normal air movement, No rhonchi, No wheeze, No rales Cardiovascular: Regular rate, Regular Rhythm, Normal S1, Normal S2, No murmurs, PMI Normal, No rub noted, No Gallop Abdomen: Bowel Sounds Present, Soft, Non Tender, Non-Distended Extremities: No clubbing, No cyanosis, No edema, Capillary Refill Less than 3 Seconds Skin: No rashes, No breakdown Musculoskeletal: No Tenderness to Palpation of Joints or Extremities Neurological: Cranial nerves II-XII grossly intact, Neuro grossly intact, Sensory exam intact to light touch and pain Psych/Mental Status: Normal Affect, Appropriate, Alert and oriented to time, place, person, mood and affect Microbiology Past 72 Hours 05/03/20 17:50 Mucosa - Nose SARS-CoV-2 Antigen (Rapid) - Final Laboratory Results 05/03/20 16:50: Urine Opiates Screen NEGATIVE, Urine Methadone Screen NEGATIVE, Ur Barbiturates Screen NEGATIVE, Ur Phencyclidine Scrn NEGATIVE, Ur Amphetamines Screen NEGATIVE, U Methamphetamin-MDMA NEGATIVE, U Benzodiazepines Scrn NEGATIVE, Urine Cocaine Screen NEGATIVE, U Cannabinoids Screen NEGATIVE, Ur Drug Screen Comment 05/03/20 16:55: WBC 5.7, RBC 5.23, Hgb 16.3, Hct 48.2, MCV 92.2, MCH 31.2, MCHC 33.8, RDW Std Deviation 42.6, RDW Coeff of Donovan 12.5, Plt Count 169, MPV 8.5, Immature Gran % (Auto) 0.300, Neut % (Auto) 54.8, Lymph % (Auto) 34.6, [place] % (Auto) 6.8, Eos % (Auto) 2.8, Baso % (Auto) 0.7, Absolute Neuts (auto) 3.1, Absolute Lymphs (auto) 1.98, Nucleated RBC % 0 05/03/20 16:55: Sodium 138, Potassium 3.7, Chloride 103, Carbon Dioxide 30.0, Anion Gap 5, BUN 7, Creatinine 0.85, Estim Creat Clear Calc 124.27, Est GFR (MDRD) Af Amer 129, Est GFR (MDRD) Non-Af 107, BUN/Creatinine Ratio 8.3 L, Glucose 108 H, Calcium 8.5 05/03/20 16:55: Ethyl Alcohol 469.0 H* 05/03/20 16:55: Total Bilirubin 0.50, Direct Bilirubin 0.19, AST 54 H, ALT 47, Alkaline Phosphatase 64, Total Protein 8.3 H, Albumin 4.7, Globulin 3.6 05/03/20 16:55: PT 11.6 L, INR 0.9 05/03/20 16:55: Phosphorus 3.4 Current Medications Acetaminophen (Acetaminophen 500 Mg Tablet) 500 mg PO Q4H PRN PRN PRN Reason: Temp > 100.4 F Bisacodyl (Bisacodyl 10 Mg Suppository) 10 mg RC DAILY PRN PRN PRN Reason: Constipation Folic Acid (Folic Acid 1 Mg Tablet) 1 mg PO DAILY@0800 DEANNA Last Admin: 05/04/20 08:24 Dose: 1 mg Documented by: Sodium Chloride () 250 mls @ 15 mls/hr IV .[id number] PRN PRN Reason: Saline Flush Sodium Chloride () 250 mls @ 15 mls/hr IV .[id number] PRN PRN Reason: Additional IVPB Infusion Ibuprofen (Ibuprofen 400 Mg Tablet) 400 mg PO Q8H PRN PRN PRN Reason: Pain Score 1-10 Lorazepam (Lorazepam 1 Mg Tablet) 2 mg PO Q2H PRN PRN; Protocol PRN Reason: CIWA score > 8 but <15 Lorazepam (Lorazepam 1 Mg Tablet) 2 mg PO UD PRN; Protocol PRN Reason: CIWA score >/=15. Lorazepam (Lorazepam 2 Mg/Ml Syringe) 2 mg IV Q2H PRN PRN; Protocol PRN Reason: CIWA score > 8 but <15 Lorazepam (Lorazepam 2 Mg/Ml Syringe) 2 mg IV UD PRN; Protocol PRN Reason: CIWA score >/=15. Nicotine (Nicotine 21 Mg Patch) 21 mg TD DAILY [facility] Last Admin: 05/04/20 08:23 Dose: 21 mg Documented by: Ondansetron HCl (Ondansetron 8 Mg Tablet) 8 mg PO Q8H PRN PRN PRN Reason: NAUSEA Phenobarbital (Phenobarbital 32.4 Mg Tablet) 97.2 mg PO Q4H [facility]; Taper Stop: 05/08/20 03:59 Last Admin: 05/04/20 07:55 Dose: 97.2 mg Documented by: Senna (Senna Tablet) 2 tablet PO QHS PRN PRN PRN Reason: Constipation Sodium Chloride (0.9% Saline Lock 10 Ml Syringe) 10 - 40 ml IV UD PRN PRN Reason: SALINE FLUSH Last Admin: 05/03/20 19:50 Dose: 10 ml Documented by: Thiamine HCl (Thiamine Hydrochloride 100 Mg Tablet) 100 mg PO DAILYCM [facility] Last Admin: 05/04/20 08:24 Dose: 100 mg Documented by: Medical Necessity - Tobacco Use Smoking Status: Current every day smoker Tobacco Use: Cigarettes Assessment/Plan All Active Problems Chronic alcohol use and dependence (Acute) Alcohol withdrawal (Acute) #1 acute alcohol withdrawal-continue present medications, I have added Ativan for agitation if needed, social media editor from [facility] will see the patient #2 chronic alcoholism Inpatient E&M: [id number] [facility] Hosp L2
[2020-05-04 13:05] VITALS: BP 131/82; PULSE 81; RESP 18; TEMP 37.3; O2SAT 97
--- NOTE | 2020-05-04 17:08 | CHAPLAIN ---
Type of Pastoral Visit _x__ Initial Visit ___ Follow-up Visit ___ On-call Visit ___ General Patient Visit ___ Spiritual Assessment ___ Family Conference ___ Bereavement ___ Rapid Response ___ Code Blue ___ Other (describe below) Pastoral Care Referral From _x__ Patient ___ Family ___ Nurse ___ Physician ___ Mink Farmer ___ Cartridge Loader ___ Other (describe below) Sacrament/Intervention _x__ Active listening ___ Anointing ___ Oriental Orthodox ___ Bereavement ___ Communion _x__ Aiyana exploration ___ _x__ Life review _x__ Prayer ___ Reconciliation ___ Sacrament of Sick _x__ Supportive presence ___ Wedding ___ Other (describe below) Pastoral Comments patient is very welcoming of visit and support from spiritual care; pt was seen previously in past admission and was very open/talkative about self and situation; pt given affirmation for his plans to enter recovery rehab with [facility]; pt welcomes a visit tomorrow if possible
[2020-05-04 18:00] VITALS: BP 131/87; PULSE 86; RESP 18; TEMP 36.7; O2SAT 95
[2020-05-04] MEDS: Senna Tablet 2 TABLET PO (21:03)
[2020-05-04 22:00] VITALS: BP 142/84; PULSE 80; RESP 16; TEMP 37.5; O2SAT 98
[2020-05-05] MEDS: Phenobarbital 32.4 MG Tablet 64.8 MG PO ×7 (00:40→23:59)
[2020-05-05 04:00] VITALS: BP 126/86; PULSE 93; RESP 16; TEMP 37.2; O2SAT 99
[2020-05-05] MEDS: Folic Acid 1 MG Tablet PO (08:08)
[2020-05-05] MEDS: Thiamine Hydrochloride 100 MG Tablet PO (08:08)
[2020-05-05 08:15] VITALS: BP 132/80; PULSE 75; RESP 16; TEMP 36.7; O2SAT 98
--- NOTE | 2020-05-05 09:56 | ADDICTION ---
This conventional mortgage underwriter met with PT in his room. PT a+ox4 and engaged appropriately. Assessments completed on 05/04/20 via telephone and verified by PT in person during today's visit. D/C plan completed. PT to d/c to home and plans to admit to [facility] on 05/09/2020. This conventional mortgage underwriter recommended a direct admit but PT declined. All completed documentation faxed to [facility] & placed in PT's chart.
--- NOTE | 2020-05-05 10:58 | PN_ITS ---
Patient Problems: Active and Suspected Problems Chronic alcohol use and dependence (Acute) Alcohol withdrawal (Acute) Subjective: Patient was seen and examined today, he talked with [facility] today and is decided that he would like to start inpatient treatment tomorrow if possible, I talked to [facility] about this and they will be able to take him as long as he gets there before 2:00 tomorrow afternoon. I told the patient I would plan on discharging early in the morning tomorrow. Patient has no complaints of any anxiety or tremors at this time, he states that he would just like to start inpatient rehab tomorrow if possible. - Physical Exam Vitals/I&O's: Vital Signs Temp Pulse Resp BP Pulse Ox 98.1 F 75 16 132/80 H 98 05/05/20 08:15 05/05/20 08:15 05/05/20 08:15 05/05/20 08:15 05/05/20 08:15 Oxygen Delivery Method Room Air Weight: 76.7 kg Body Mass Index (BMI) 23.6 Intake and Output for Last 24 Hours 05/03/20 05/04/20 05/05/20 23:59 23:59 23:59 Intake Total 500 / 500 2300 / 3300 1000 / 1000 Output Total 0 / 0 Balance 500 / 500 2300 / 3300 1000 / 1000 General: Alert, Oriented x3, Cooperative, No apparent distress, Well developed, Well nourished HEENT: Atraumatic, PERRLA, EOMI, Normocephalic Oral: Moist Mucosa Neck: Supple, No JVD, Trachea Midline, Thyroid Normal Size and Texture Lungs: Clear to auscultation, Normal air movement, No rhonchi, No wheeze, No rales Cardiovascular: Regular rate, Regular Rhythm, Normal S1, Normal S2, No murmurs, PMI Normal, No rub noted, No Gallop Abdomen: Bowel Sounds Present, Soft, Non Tender, Non-Distended, No hernias noted Extremities: No clubbing, No cyanosis, No edema, Capillary Refill Less than 3 Seconds Skin: No rashes, No breakdown Musculoskeletal: No Tenderness to Palpation of Joints or Extremities Neurological: Cranial nerves II-XII grossly intact, Neuro grossly intact, Sensory exam intact to light touch and pain, Coordination normal Psych/Mental Status: Normal Affect, Appropriate, Alert and oriented to time, p lace, person, mood and affect Microbiology Past 72 Hours 05/03/20 17:50 Mucosa - Nose SARS-CoV-2 Antigen (Rapid) - Final Current Medications Acetaminophen (Acetaminophen 500 Mg Tablet) 500 mg PO Q4H PRN PRN PRN Reason: Temp > 100.4 F Bisacodyl (Bisacodyl 10 Mg Suppository) 10 mg RC DAILY PRN PRN PRN Reason: Constipation Folic Acid (Folic Acid 1 Mg Tablet) 1 mg PO DAILY@0800 [facility] Last Admin: 05/05/20 08:08 Dose: 1 mg Documented by: Sodium Chloride () 250 mls @ 15 mls/hr IV .[id number] PRN PRN Reason: Saline Flush Sodium Chloride () 250 mls @ 15 mls/hr IV .[id number] PRN PRN Reason: Additional IVPB Infusion Ibuprofen (Ibuprofen 400 Mg Tablet) 400 mg PO Q8H PRN PRN PRN Reason: Pain Score 1-10 Lorazepam (Lorazepam 1 Mg Tablet) 2 mg PO Q2H PRN PRN; Protocol PRN Reason: CIWA score > 8 but <15 Lorazepam (Lorazepam 1 Mg Tablet) 2 mg PO UD PRN; Protocol PRN Reason: CIWA score >/=15. Lorazepam (Lorazepam 2 Mg/Ml Syringe) 2 mg IV Q2H PRN PRN; Protocol PRN Reason: CIWA score > 8 but <15 Lorazepam (Lorazepam 2 Mg/Ml Syringe) 2 mg IV UD PRN; Protocol PRN Reason: CIWA score >/=15. Nicotine (Nicotine 21 Mg Patch) 21 mg TD DAILY [facility] Last Admin: 05/05/20 08:07 Dose: 21 mg Documented by: Ondansetron HCl (Ondansetron 8 Mg Tablet) 8 mg PO Q8H PRN PRN PRN Reason: NAUSEA Phenobarbital (Phenobarbital 32.4 Mg Tablet) 64.8 mg PO Q4H [facility]; Taper Stop: 05/08/20 03:59 Last Admin: 05/05/20 08:14 Dose: 64.8 mg Documented by: Senna (Senna Tablet) 2 tablet PO QHS PRN PRN PRN Reason: Constipation Last Admin: 05/04/20 21:03 Dose: 2 tablet Documented by: Sodium Chloride (0.9% Saline Lock 10 Ml Syringe) 10 - 40 ml IV UD PRN PRN Reason: SALINE FLUSH Last Admin: 05/03/20 19:50 Dose: 10 ml Documented by: Thiamine HCl (Thiamine Hydrochloride 100 Mg Tablet) 100 mg PO DAILYCM [facility] Last Admin: 05/05/20 08:08 Dose: 100 mg Documented by: Medical Necessity - Tobacco Use Smoking Status: Current every day smoker Tobacco Use: Cigarettes Assessment/Plan All Active Problems Chronic alcohol use and dependence (Acute) Alcohol withdrawal (Acute) #1 acute alcohol withdrawal-continue present medications, patient requests trazodone for sleep, I will add this on, the plan is for the patient to be discharged tomorrow and go to inpatient rehab services at [facility]. #2 chronic alcoholism Inpatient E&M: 10052 Subs Hosp L2
--- NOTE | 2020-05-05 11:46 | NURSING ---
Melissa from called and explained that they will not be able to take pt until Saturday, instead of tomorrow as originally planned. MD notified. Pt notified and discussed when his last phenobarb dose is due which is 2200 on Saturday night. pt would prefer to be discharged Saturday or Saturday and stay with his parents and then report to [facility] on Saturday morning.
[2020-05-05 13:07] VITALS: BP 127/78; PULSE 86; RESP 16; TEMP 36.7; O2SAT 98
--- NOTE | 2020-05-05 14:47 | CHAPLAIN ---
Type of Pastoral Visit ___ Initial Visit _x__ Follow-up Visit ___ On-call Visit ___ General Patient Visit ___ Spiritual Assessment ___ Family Conference ___ Bereavement ___ Rapid Response ___ Code Blue ___ Other (describe below) Pastoral Care Referral From _x__ Patient ___ Family ___ Nurse ___ Physician ___ Paper Making Machine Operator ___ Top Trimmer ___ Other (describe below) Sacrament/Intervention _x__ Active listening ___ Anointing ___ Voodoo ___ Bereavement ___ Communion ___ Aiyana exploration ___ _x__ Life review ___ Prayer ___ Reconciliation ___ Sacrament of Sick _x__ Supportive presence ___ Wedding ___ Other (describe below) Pastoral Comments patient repeats his appreciation for time given for support; discussion on some of patient's interests and hopes of things to do in the future
[2020-05-05 16:10] VITALS: BP 132/89; PULSE 66; RESP 18; TEMP 36.7; O2SAT 98
--- NOTE | 2020-05-05 16:46 | NURSING ---
reviewed and agree with documentation by VIELKA Duggan
[2020-05-05 20:00] VITALS: BP 126/87; PULSE 75; RESP 18; TEMP 36.4; O2SAT 98
[2020-05-05] MEDS: traZODone 50 MG Tablet 150 MG PO (21:55)
[2020-05-06 04:00] VITALS: BP 106/74; PULSE 68; RESP 16; TEMP 36.9; O2SAT 96
[2020-05-06] MEDS: Phenobarbital 32.4 MG Tablet 64.8 MG PO ×2 (04:03→09:30)
[2020-05-06] MEDS: Thiamine Hydrochloride 100 MG Tablet PO (08:11)
[2020-05-06] MEDS: Folic Acid 1 MG Tablet PO (08:11)
[2020-05-06 08:19] VITALS: BP 117/73; PULSE 83; RESP 18; TEMP 36.6; O2SAT 98
--- NOTE | 2020-05-06 09:12 | DCINST_ITS ---
- Discharge Diagnoses Current Active Problems: Current Active and Chronic Problems Chronic alcohol use and dependence (Acute) Alcohol withdrawal (Acute) Anxiety (Chronic) Tobacco use (Chronic) You will use the following diet at home:: No restrictions Your food should be the consistency of: Regular Your liquids should be the consistency of: Regular/Thin Discharge Activity: Return to Normal Activity Weight Bearing Status: Full weight bearing Instructions: ED Withdrawal Alcohol, ED Alcohol Abuse Allergies/Adverse Reactions: Allergies No Known Allergies Allergy (Verified 03/02/20 10:44) Medications to take at Discharge Folic Acid 1 mg PO DAILY@0800 #30 tab 03/05/20 Thiamine Hydrochloride [Vitamin B1] 100 mg PO DAILYCM #30 tab 03/05/20 Ascorbic Acid [Vitamin C] 1,000 mg PO DAILY 05/03/20 Cholecalciferol (VIT D3) [Vitamin D3] 1,000 unit PO DAILY 05/03/20 Acetaminophen [Tylenol] 500 mg PO Q4H PRN PRN tab 05/06/20 Ibuprofen [Motrin] 400 mg PO Q8H PRN PRN tab 05/06/20 Phenobarbital 32.4 mg PO TID #10 tab 05/06/20 traZODone [Desyrel] 150 mg PO QHS PRN PRN #21 tab 05/06/20 The following prescriptions were given: traZODone [Desyrel] 150 mg PO QHS PRN PRN #21 tab PRN Reason: Sleep Transmission Status: Pending to [facility] Phenobarbital 32.4 mg PO TID #10 tab Transmission Status: Received by [facility] [id number] Primary Care Physician: Care Physician,No Primary [Primary Care Provider] - Test Results: Test results from this visit will be discussed in further detail at your follow- up appointment, if applicable. Please Follow Up With: [facility] When: on 05/09/20
--- NOTE | 2020-05-06 10:28 | ADDICTION ---
This editorial writer met with PT in his room to finalize d/c plan. PT to admit into [facility] residential treatment on Tuesday 05/09 as he requested to be able to go home to get his things and was not willing to directly admit from [facility]. He will provide self-transportation.
[2020-05-06 13:00] VITALS: BP 129/82; PULSE 98; RESP 16; TEMP 37.1; O2SAT 95
--- NOTE | 2020-05-06 14:03 | NURSING ---
reviewed and agree with documentation by VIELKA Duggan
--- NOTE | 2020-05-06 19:30 | PCM.DC.SUM ---
Discharge Date and Diagnosis - Problem List Patient Problems: Active and Suspected Problems Chronic alcohol use and dependence (Acute) Alcohol withdrawal (Acute) Date of Admission: 05/03/20 Date of Discharge: 05/06/20 - Primary Discharge Diagnosis Acute Problems: Active Problems #1 acute alcohol withdrawal #2 chronic alcoholism - Secondary Discharge Diagnosis Chronic Problems: Chronic Problems Anxiety (Chronic) Tobacco use (Chronic) Hospital Course and Treatment Operations: None Procedures: None Summary of Care Provided: The patient is a 40 year old M who was seen in the emergency room at [facility] requesting services for alcohol detox. Patient had been through detox services before for alcohol abuse but ultimately went back to drinking. Labs revealed nothing alcohol level of 469, patient's toxicology screen was unremarkable, patient CBC and blood chemistries were unremarkable. Patient was admitted to [place] [address] and alcohol withdrawal order sets were entered, patient in no serious adverse events during his hospitalization and he agreed to inpatient treatment at [facility], unfortunately, this was not available until 05/09/2020. I made the decision to release the patient on home phenobarbital until he could be admitted to the inpatient 180 program on 05/09/2020. On 05/06/2020, patient was seen and examined: On examination he appeared in good health and spirits. Vital signs as documented. Skin warm and dry and without overt rashes. Neck without JVD, neck was supple, trachea midline, thyroid was normal. Lungs clear bilaterally, normal air movement was noted. Heart exam notable for regular rhythm, normal sounds and absence of murmurs, rubs or gallops. Abdomen unremarkable and without evidence of organomegaly, masses, or abdominal aortic enlargement. Bowel sounds are present, abdomen is not distended. Extremities nonedematous, no cyanosis was noted, no clubbing was noted. Neuro: Cranial nerves II through XII are grossly intact, no focal motor deficits were noted, sensation to light touch and pinprick intact, motor exam 5/5 throughout. Psych: Patient is alert and oriented x3, he does not appear anxious or depressed, he does not appear agitated. Patient was discharge on 05/06/2020 in stable condition. Patient Problems: Active and Suspected Problems Chronic alcohol use and dependence (Acute) Alcohol withdrawal (Acute) - Physical Exam Vitals/I&O's: Vital Signs Temp Pulse Resp BP Pulse Ox 98.7 F 98 16 129/82 H 95 05/06/20 13:00 05/06/20 13:00 05/06/20 13:00 05/06/20 13:00 05/06/20 13:00 Oxygen Delivery Method Room Air Weight: 76.7 kg Body Mass Index (BMI) 23.6 Intake and Output for Last 24 Hours 05/04/20 05/05/20 05/06/20 23:59 23:59 23:59 Intake Total 2300 / 3300 2600 / 2600 600 / 600 Output Total 0 / 0 Balance 2300 / 3300 2600 / 2600 600 / 600 Microbiology Past 72 Hours 05/03/20 17:50 Mucosa - Nose SARS-CoV-2 Antigen (Rapid) - Final Discharge Activity: Return to Normal Activity Weight Bearing Status: Full weight bearing Home Medications: Medications to take at Discharge Folic Acid 1 mg PO DAILY@0800 #30 tab 03/05/20 Thiamine Hydrochloride [Vitamin B1] 100 mg PO DAILYCM #30 tab 03/05/20 Ascorbic Acid [Vitamin C] 1,000 mg PO DAILY 05/03/20 Cholecalciferol (VIT D3) [Vitamin D3] 1,000 unit PO DAILY 05/03/20 Acetaminophen [Tylenol] 500 mg PO Q4H PRN PRN tab 05/06/20 Ibuprofen [Motrin] 400 mg PO Q8H PRN PRN tab 05/06/20 Phenobarbital 32.4 mg PO TID #10 tab 05/06/20 Phenobarbital 32.4 mg PO TID #10 tab 05/06/20 traZODone [Desyrel] 150 mg PO QHS PRN PRN #21 tab 05/06/20 Following Prescriptions Were Given to Patient: traZODone [Desyrel] 150 mg PO QHS PRN PRN #21 tab PRN Reason: Sleep Transmission Status: Received by [facility] Phenobarbital 32.4 mg PO TID #10 tab Transmission Status: Received by [id number] Phenobarbital 32.4 mg PO TID #10 tab Transmission Status: Received by [facility] Primary Care Physician: Care Physician,No Primary [Primary Care Provider] - Please Follow Up With: 180 When: on 05/09/20 Patient Instructions: ED Withdrawal Alcohol, ED Alcohol Abuse Disposition: Home Minutes spent on discharge:: 31 Patient Condition:: Stable Medical Necessity - Tobacco Use Smoking Status: Current every day smoker Tobacco Use: Cigarettes Meaningful Use Info Meaningful Use Diagnoses (Choose all that apply): None applicable Inpatient E&M: 25730 Disch Hosp
== END 2020-05-06 13:53 | disposition home or self-care (01) | DRG 775 ==
LOC: ED 17:39 → MS3 18:16
PROVIDERS: Admitting Provider Internal Medicine; Emergency Provider Emergency Medicine; Visit Provider Internal Medicine
DX: F10.231 Alcohol dependence with withdrawal delirium (principal); F10.229 Alcohol dependence with intoxication, unspecified; F17.210 Nicotine dependence, cigarettes, uncomplicated; F41.9 Anxiety disorder, unspecified; Y90.8 Blood alcohol level of 240 mg/100 ml or more; Z80.0 Family history of malignant neoplasm of digestive organs; Z82.49 Family history of ischemic heart disease and other diseases of the circulatory system; Z83.3 Family history of diabetes mellitus
CPT/HCPCS: 80048; 80076; 80307; 82077; 84100; 85025; 85610; 87426; 99282; J7120; A4216

== ENCOUNTER 2023-05-16 14:31 | Inpatient (IN) | payer MEDICAID, SELFPAY ==
[2023-05-16 14:32] VITALS: BP 145/103; PULSE 130; RESP 26; TEMP 37.2; O2SAT 98; BMI 25.6
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
[2023-05-16 15:03] VITALS: BP 144/90; PULSE 114; RESP 17; TEMP 36.4; O2SAT 97
[2023-05-16 15:10] VITALS: BP 144/90; PULSE 114; RESP 17; TEMP 36.4; O2SAT 97
[2023-05-16] MEDS: 0.9% Normal Saline (1000mL) 1,000 ML 999 ML IV (15:14)
[2023-05-16 15:22] LABS: Absolute Lymphocyte Count 3.31 X10^3/uL (0.83-4.51); Absolute Neutrophil Count 4.3 X10^3/uL (2.0-7.7); Basophil% 1.2 % (0-1); Eosinophil# 0.08 X10^3/uL; Hematocrit 46.7 % (40-54); Hemoglobin 15.4 g/dL (13.0-16.5); Lymphocyte # 3.31 X10^3/ul (0.83-4.51); Lymphocyte % 40.1 % (19-41); Mean Corpuscular Hgb 28.8 pg (27.0-32.0); Mean Corpuscular Volume 87.5 fL (80-94); Monocyte# 0.44 X10^3/uL; Monocyte% 5.3 % (0-10); NRBC Flagged by Analyzer 0 % (0-5); Neutrophil # 4.26 X10^3/uL (2.7-7.7); Neutrophil % 51.6 % (47-70); Platelet Count 330 K/mm3 (150-450); RBC Distribution Width CV 14.7 % (11.6-14.6); RBC Distribution Width SD 47.1 fl (35.1-43.9); Red Blood Count 5.34 M/mm3 (4.6-6.2); White Blood Count 8.3 K/mm3 (4.4-11.0)
[2023-05-16 15:37] LABS: ALB/GLOB Ratio 1.4 RATIO (0.9-2.4); AST(SGOT) 44 U/L (15-37); Alanine Aminotransfer ALT/SGPT 41 U/L (16-61); Albumin, Serum 4.5 g/dL (3.2-5.0); Alkaline Phosphatase 68 U/L (45-117); Anion Gap 9 (5-15); BUN 9 mg/dL (7-18); BUN/Creat Ratio 8.7 RATIO (10-20); Calcium,Total 8.9 mg/dL (8.5-10.1); Chloride 107 mmol/L (98-107); Creatinine, Serum 1.04 mg/dL (0.70-1.30); EST Glomerular Filtration Rate 83 mL/min (>60); Est Glom Filt Rate - Afr Amer 101 mL/min (>60); Estimated Creatinine Clearance 98.55 ml/min; Globulin 3.3 g/dL (2.2-4.2); Glucose 133 mg/dL (74-106); Potassium 3.4 mmol/L (3.5-5.1); Protein, Total 7.8 g/dL (6.4-8.2); Sodium Level 141 mmol/L (136-145)
[2023-05-16 15:59] LABS: Amphetamine Urine VISTA NEGATIVE (<1000 ng/mL); Barbiturate Urine VISTA NEGATIVE (< 200 ng/mL); Benzodiazepine Urine VISTA NEGATIVE (< 200 ng/mL); Cocaine Urine VISTA NEGATIVE (< 300 ng/mL); Ecstacy Urine VISTA NEGATIVE (< 500 ng/mL); Methadone Urine VISTA NEGATIVE (< 300 ng/mL); PCP Urine VISTA NEGATIVE (< 25 ng/mL); THC Urine VISTA NEGATIVE (< 50 ng/mL); Vista UDS pH Range 5
[2023-05-16] MEDS: Phenobarbital 32.4 MG Tablet 97.2000000000000028 MG PO (16:11)
--- NOTE | 2023-05-16 16:38 | NURSING ---
DR ARABELLA PIPERLETTE
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
[2023-05-16 18:41] VITALS: BMI 25.1
[2023-05-16 18:44] VITALS: BP 130/94; PULSE 108; RESP 18; TEMP 37.1; O2SAT 98
[2023-05-16 18:50] VITALS: BP 130/94; PULSE 108; RESP 18; TEMP 37.1; O2SAT 98
--- OUTSIDE RECORDS SUMMARY | 2023-05-16 19:31 | XMS RPT_ITS | CCD ---
Author Name Unknown Address [address] [place] [address] Organization [facility] Care Team Providers Care Stamping Machine Operator Name Role Phone Chong Toribio Unavailable Unavailable provider (Unknown), Unlisted Unavailable Louann jaqueline MONGE, MARIANELA BOYER Primary Care Phys ician Unavailable Primary Care Provider Lashanda Whitmore MD, Jaren Primary Care Provider [phone] IVANIA PARKER, DR AGUILA MONTANA Attending U matthew REDD MD, DR AGUILA MONTANA Primary Care U matthew ORNELAS MD, DR OROZCO Attending Unavailable IVANIA PARKER, DR AGUILA MONTANA Consulting U matthew REDD MD, DR AGUILA MONTANA Primary [facility] TRAORE, VIRAJ Attending Lashanda REDD MD, DR AGUILA MONTANA Primary Care U matthew PAREDES MD, DR HAND Attending Lashanda REDD MD, DR AGUILA MONTANA [facility], PHYSI Primary Care Unavailable JAIRO MONROE Admitting Unavailable JAIRO MONROE Attending Unavailable RUFINO HORTON Attending Unavailable RUFINO HORTON Primary Care Unavailable RUFINO HORTON Admitting Unavailable Medications Current Medications Medication Drug Class(es) Dates Sig (Normalized) Sig (Original) amoxicillin 875 mg / clavulanate 125 mg oral tablet (1 source) Penicillin-class Antibacterial Start: 03-15-2021 End: 03-22-2021 take 1 tablet by mouth every twelve hours amoxicillin-clav ulanate 875 mg-125 mg oral tablet 1 tab(s), Oral, q12h, X 7 day(s), # 14 tab(s), 0 Refill(s), 03/22/21 23:04:00 EST, 72.7 Start Date: 03/15/21 Stop Date: 03/22/21 Status: Ordered Flonase 50 mcg/inh nasal spray (1 source) Start: 01-07-2019 take 1 dose nasal route twice daily Flonase 50 mcg/inh nasal spray Dose = 1 spray(s), Nostril, each, BID, # 16 gram(s), 0 Refill(s) Start Date: 01/07/19 Status: Ordered thiamine 100 mg oral tablet (2 sources) Start: 05-28-2017 take 1 tablet by mouth once daily vitamin B-1 100 MG tablet Take 1 tablet by mouth daily 90 tablet 3 05/28/2017 Active traZODone hydrochloride 50 mg oral tablet (1 source) Serotonin Reuptake Inhibitor Start: 05-27-2017 take 1 tablet by mouth once daily as needed for sleep traZODone (DESYREL) 50 MG tablet Take 1 tablet by mouth nightly as needed for Sleep 30 tablet 0 05/27/2017 Active Problems Active Problems Problem Classification Problem Date Documented Da te Episodic/Chronic Alcohol-related disorders (5 sources) Alcohol dependence, uncomplicated; Translations: [Alcoholism] Onset: 02-08-2017 05-22-2017 Chronic Anxiety disorders (1 source) Anxiety disorder, unspecified; Translations: [ANXIETY DISORDER, UNSPECIFIED] Onset: 10-26-2022 Chronic Cardiac dysrhythmias (1 source) Tachycardia, unspecified; Translations: [TACHYCARDIA, UNSPECIFIED] Onset: 10-26-2022 Episodic Deficiency and other anemia (1 source) Other pancytopenia; Translations: [OTHER PANCYTOPENIA] Onset: 10-26-2022 Chronic Diabetes mellitus without complication (1 source) Hyperglycemia, unspecified; Translations: [HYPERGLYCEMIA, UNSPECIFIED] Onset: 10-26-2022 Episodic E Codes: Fall (1 source) Fall on same level from slipping, tripping and stumbling with subsequent striking against other object, initial encounter; Translations: [Fall on same level from slipping, tripping and stumbling with subsequent striking against other object, initial encounter] Onset: 04-04-2023 Episodic E Codes: Place of occurrence (1 source) Restaurant or cafe as the place of occurrence of the external cause; Translations: [Restaurant or cafe as the place of occurrence of the external cause] Onset: 04-04-2023 Episodic Esophageal disorders (2 sources) Acharya's esophagus without dysplasia; Translations: [ACHARYA'S ESOPHAGUS WITHOUT DYSPLASIA] Onset: 10-26-2022 Chronic Fluid and electrolyte disorders (2 sources) Hypo-osmolality and hyponatremia; Translations: [Hypokalemia] Onset: 10-26-2022 Episodic Nutritional deficiencies (1 source) Moderate protein-calorie malnutrition; Translations: [MODERATE PROTEIN-CALORIE MALNUTRITION] Onset: 10-26-2022 Chronic Open wounds of head; neck; and trunk (3 sources) Laceration without foreign body of left eyelid and periocular area, initial encounter; Translations: [Laceration without foreign body of left eyelid and periocular area, initial encounter] Onset: 04-04-2023 Episodic Other non-traumatic joint disorders (1 source) Shoulder pain; Translations: [Pain in right shoulder] Episodic Other nutritional; endocrine; and metabolic disorders (1 source) Hypocalcemia; Translations: [HYPOCALCEMIA] Onset: 10-26-2022 Chronic Other nutritional; endocrine; and metabolic disorders (1 source) Hypomagnesemia; Translations: [HYPOMAGNESEMIA] Onset: 10-26-2022 Chronic Residual codes; unclassified (1 source) Body mass index (BMI) 23.0-23.9, adult; Translations: [BODY MASS INDEX [BMI] 23.0-23.9, ADULT] Onset: 10-26-2022 Episodic Residual codes; unclassified (1 source) Family history of diabetes mellitus; Translations: [FAMILY HISTORY OF DIABETES MELLITUS] Onset: 10-26-2022 Episodic Screening and history of mental health and substance abuse codes (1 source) Personal history of nicotine dependence; Translations: [PERSONAL HISTORY OF NICOTINE DEPENDENCE] Onset: 10-26-2022 Episodic Substance-related disorders (1 source) Nicotine dependence, unspecified, uncomplicated; Translations: [Nicotine dependence, unspecified, uncomplicated] Onset: 04-04-2023 Chronic Unclassified (1 source) Esophagitis, unspecified without bleeding; Translations: [Esophagitis, unspecified without bleeding] Onset: 05-11-2022 Unclassified (1 source) ALCOHOL USE, UNSPECIFIED WITH WITHDRAWAL, UNSPECIFIED; Translations: [ALCOHOL USE, UNSPECIFIED WITH WITHDRAWAL, UNSPECIFIED] Onset: 10-26-2022 Unclassified (1 source) ALCOHOL ABUSE WITH WITHDRAWAL, UNSPECIFIED; Translations: [ALCOHOL ABUSE WITH WITHDRAWAL, UNSPECIFIED] Onset: 10-26-2022 Unclassified (1 source) ELEVATION OF LEVELS OF LIVER TRANSAMINASE LEVELS; Translations: [ELEVATION OF LEVELS OF LIVER TRANSAMINASE LEVELS] Onset: 10-26-2022 Past or Other Problems Problem Classification Problem Date Documented Da te Episodic/Chronic Residual codes; unclassified (1 source) History of alcohol abuse; Translations: [Personal history of other medical treatment] Onset: 05-23-2017 05-23-2017 Episodic Unclassified (1 source) Esophagitis, unspecified without bleeding; Translations: [Esophagitis, unspecified without bleeding] Onset: 05-11-2022 Unclassified (1 source) ALCOHOL USE, UNSPECIFIED WITH WITHDRAWAL, UNSPECIFIED; Translations: [ALCOHOL USE, UNSPECIFIED WITH WITHDRAWAL, UNSPECIFIED] Onset: 10-26-2022 Results Test Name Value Interpretation Reference Range Facil ity Vital Signs Date Time Vital Sign Value Performing Clinician Faci lity 03-15-2021 22:20-0500 Body height 180.3 cm GENESIS JOHNSON MD [facility] 03-15-2021 22:20-0500 Body temperature 97.88 [degF] GENESIS JOHNSON MD [facility] 03-15-2021 22:20-0500 Body weight 72.7 kg GENESIS JOHNSON MD [facility] 03-15-2021 22:20-0500 Diastolic blood pressure 73 mm[Hg] GENESIS JOHNSON MD [facility] 03-15-2021 22:20-0500 Heart rate 106 /min GENESIS JOHNSON MD [facility] 03-15-2021 22:20-0500 Respiratory rate 18 /min GENESIS JOHNSON MD [facility] 03-15-2021 22:20-0500 Systolic blood pressure 105 mm[Hg] GENESIS JOHNSON MD [facility] Encounters Encounter Date Encounter Type Care Provider Facility Start: 04-04-2023 End: 04-04-2023 Emergency department patient visit RUFINO Orin HORTON [facility] Start: 10-30-2022 End: 10-30-2022 ambulatory 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 Facility:A Start: 10-26-2022 End: 10-29-2022 Evaluation and management of inpatient PHYSI NONSTAFF Facility:[facility] Start: 06-28-2022 End: 07-03-[address] AGUILA REDD MD Facility:A Start: 06-28-2022 End: 07-03-2022 Encounter for general adult medical examination without abnormal findings DR AGUILA REDD MD Facility:[facility] Start: 05-11-2022 End: 05-16-[address] ERNESTO ORNELAS MD Facility:[facility] Start: 05-06-2022 End: 05-07-2022 Emergency department patient visit DR PEACE PAREDES MD Facility:A Start: 10-13-2021 End: 10-13-2021 Subsequent hospital visit by physician Aixa Valle MD Work Phone: [facility] Procedures Date Procedure Procedure Detail Performing Clinician Start: 04-04-2023 Urinalysis RUFINO HORTON Plan of Treatment Date Care Activity Detail Author Start: 03-15-2031 DTaP/Tdap/Td vaccine (2 - Td or Tdap) DTaP/Tdap/Td vaccine (2 - Td or Tdap) [facility] Start: 12-14-2021 End: 12-14-2021 Patient encounter procedure 12/14/2021 Office Visit Sports Medicine Aixa Valle MD [address] [place] [address] [place] [id number] [facility] [place] Start: 11-23-2021 Influenza vaccination Flu vaccine (#1) [facility] Start: 2021 Lipid panel Lipids [facility] Start: 1993 Depression Screen Depression Screen [facility] Start: 1987 Pneumococcal 0-64 years Vaccine (1 - PCV) Pneumococcal 0-64 years Vaccine (1 - PCV) [facility] Start: 1982 Varicella vaccine (1 of 2 - 2-dose childhood series) Varicella vaccine (1 of 2 - 2-dose childhood series) [facility] Start: 1981 COVID-19 Vaccine (#1) COVID-19 Vaccine (#1) [facility] Immunizations Immunization Date Immunization Notes Care Provider Fa cility 03-15-2021 tetanus toxoid, redu jazzy diphtheria toxoid, and acellular pertussis vaccine, adsorbed; Translations: [Boostrix (Tdap)] GENESIS JOHNSON MD [facility] Payers Date Payer Category Payer Unknown [id number] 2021 Unknown [id number] 1981 Unknown [id number] 1981 Unknown [id number] [id number] 1981 Unknown [id number] [id number] [id number] 1981 Unknown [id number] [id number] 1981 Unknown [id number] 2.16.8 [id number] Unknown [id number] Unknown [id number] [id number] [id number] Social History Date Type Detail Facility [facility]igned At [facility] smoking consumption unknown [facility] Start: 1980 Sex Assigned At Not on file [facility] Start: 10-13-[address] [facility] Smokes tobacco daily [facility] History of tobacco use Cigarette Smoker S [facility] Work Phone: Start: 10-13-2021 Cigarettes smoked current (pack per day) - Reported 1 [employer] Work Phone: Start: 10-13-2021 Tobacco use and exposure Smokeless tobacco non-user [employer] Work Phone: Start: 10-13-2021 Alcohol intake Current drinke r of alcohol (finding) [employer] Work Phone: Hospital Discharge instructions 03-16-2021 Note Date & Type Note Facility 03-16-2021 Hospital Discharg e instructions Patient Education 03/15/2021 23:04:24 Dog Bite Dog Bite A dog bite can cause a wound deep enough to break the skin. In such cases, the wound is cleaned and sometimes closed. If the wound is closed, it is usually not completely closed. This is so that fluid can drain if the wound becomes infected. Often, wounds will be left open to heal. In addition to wound care, a tetanus shot may be given, if needed. Home care Wash your hands well with soap and warm water before and after caring for the wound. This helps lower the risk of infection. Care for the wound as directed. If a dressing was applied to the wound, be sure to change it as directed. If the wound bleeds, place a clean, soft cloth on the wound. Then firmly apply pressure until the bleeding stops. This may take up to 5 minutes. Do not release the pressure and look at the wound during this time. Most wounds heal within 10 days. But an infection can occur even with proper treatment. So be sure to check the wound daily for signs of infection (see below). Antibiotics may be prescribed. These help prevent or treat infection. If you re given antibiotics, take them as directed. Also be sure to complete the medicines. Rabies prevention Rabies is a virus that can be carried in certain animals. These can include domestic animals such as dogs and cats. Pets fully vaccinated against rabies (2 shots) are at very low risk of infection. But because human rabies is almost always fatal, any biting pet should be confined for 10 days as an extra precaution. In general, if there is a risk for rabies, the following steps may need to be taken: If someone s pet dog has bitten you, it should be kept in a secure area for the next 10 days to watch for signs of illness. (If the pet microstrategy bi developer won t allow this, contact your local animal control center.) If the dog becomes ill or dies during that time, contact your local animal control center at once so the animal may be tested for rabies. If the dog stays healthy for the next 10 days, there is no danger of rabies in the animal or you. oIf a stray dog bit you, contact your local animal control center. They can give information on capture, quarantine, and animal rabies testing. oIf you can t find the animal that bit you in the next 2 days, and if rabies exists in your area, you may need to receive the rabies vaccine series. Call your healthcare provider right away. Or, return to the emergency department promptly. oAll animal bites should be reported to the local animal control center. If you were not given a form to fill out, you can report this yourself. Follow-up care Follow up with your healthcare provider, or as directed. When to seek medical advice Call your healthcare provider right away if any of these occur: Signs of infection: oSpreading redness or warmth from the wound oIncreased pain or swelling oFever of 100.4 F (38 C) or higher, or as directed by your healthcare provider oColored fluid or pus draining from the wound Signs of rabies infection: oHeadache oConfusion oStrange behavior oIncreased salivating and drooling oSeizure Decreased ability to move any body part near the wound Bleeding that can't be stopped after 5 minutes of firm pressure [id number] [employer]. [address] [place] [address]. All rights reserved. This information is not intended as a substitute for professional medical care. Always follow your healthcare professional's instructions. Follow Up Care 03/15/2021 22:18:32 With:MARIANELA ROBERTS APRN-ALEXEY Address: [address] [place] [address] [place] [address] When:2-4 days [facility] Evaluation + Plan note Note Date & Type Note Facility Evaluation + Plan note No data available for this section [facility] Evaluation note Note Date & Type Note Facility documented in this encounter [facility] Work Phone: Summary Purpose Family History No Family History Records FoundNo Family History Records FoundNo Family History Records FoundNo Family History Records FoundNo Family History Records FoundNo Family History Records FoundNo Family History Records Found Advance Directives No Advanced Directives Records FoundLatest Code Status on File Code Status Date Activated Date Inactivated Comments Full Code 05/23/2017 1:05 AM 05/28/2017 8:31 AM Additional Source Comments (unrecognized sect ion and content) No Status Records FoundNo Status Records FoundNo Status Records FoundNo Status Records FoundNo Status Records FoundNo Status Records FoundNo Status Records Found INFORMATION SOURCE (unrecogn ized section and content) DATE CREATED AUTHOR AUTHOR'S ORGANIZ ATION 09/01/2019 [facility] DATE CREATED AUTHOR AUTHOR'S ORGANIZ ATION 08/11/2021 [facility] [place] DATE CREATED AUTHOR AUTHOR'S ORGANIZ ATION 10/27/2021 [facility] DATE CREATED AUTHOR AUTHOR'S ORGANIZ ATION 10/31/2022 [facility] ([place]) DATE CREATED AUTHOR AUTHOR'S ORGANIZ ATION 11/24/2022 [facility] DATE CREATED AUTHOR AUTHOR'S ORGANIZ ATION 04/25/2023 [facility] Source Comments (unrecognize d section and content) In the event this informatio n is protected by the Federal Confidentiality of Alcohol and Drug Abuse Patient Records regulations: The Federal rules restrict any use of the information to criminally investigate or prosecute any alcohol or drug abuse patient.[facility] Care Teams (unrecognized sec tion and content) FOR RECORDS PERTAINING TO PATIENTS WHO ARE OR HAVE BEEN ENROLLED IN A CHEMICAL DEPENDENCY/SUBSTANCEABUSE PROGRAM, SOME INFORMATION MAY BE OMITTED. This clinical summary was aggregated from multiple sources. Caution should be exercised in using it in the provision of clinical care. This summary normalizes information from multiple sources, and as a consequence, information in this document may materially change the coding, format and clinical context of patient data. In addition, data may be omitted in some cases. CLINICAL DECISIONS SHOULD BE BASED ON THE PRIMARY CLINICAL RECORDS. [facility] [employer] [facility]. provides no warranty or guarantee of the accuracy or completeness of information in this document.
[2023-05-16] MEDS: Potassium Chloride Oral Tablet 20 MEQ 40 MEQ PO (20:40)
[2023-05-16] MEDS: 0.9% Normal Saline (1000mL) 1,000 ML 150 ML IV (20:42)
[2023-05-16] MEDS: traZODone 100 MG Tablet PO (20:49)
[2023-05-16] MEDS: Ondansetron 8 MG Tablet PO (20:49)
[2023-05-16] MEDS: hydrOXYzine PAM 25 MG Capsule 50 MG PO (20:49)
[2023-05-16] MEDS: Phenobarbital 32.4 MG Tablet 32.3999999999999986 MG PO (23:24)
[2023-05-17 02:00] VITALS: BP 109/74; PULSE 74; RESP 18; TEMP 36.2; O2SAT 97
[2023-05-17] MEDS: Phenobarbital 32.4 MG Tablet 32.3999999999999986 MG PO ×6 (03:01→23:21)
[2023-05-17] MEDS: hydrOXYzine PAM 25 MG Capsule 50 MG PO ×4 (03:11→16:39)
[2023-05-17 06:54] LABS: Anion Gap 8 (5-15); BUN 8 mg/dL (7-18); BUN/Creat Ratio 9.7 RATIO (10-20); Calcium,Total 7.9 mg/dL (8.5-10.1); Chloride 111 mmol/L (98-107); Creatinine, Serum 0.82 mg/dL (0.70-1.30); EST Glomerular Filtration Rate 109 mL/min (>60); Est Glom Filt Rate - Afr Amer 132 mL/min (>60); Estimated Creatinine Clearance 124.99 ml/min; Glucose 91 mg/dL (74-106); Potassium 3.7 mmol/L (3.5-5.1); Sodium Level 144 mmol/L (136-145)
[2023-05-17 08:32] VITALS: BP 119/85; PULSE 83; RESP 18; TEMP 36.9; O2SAT 98
[2023-05-17] MEDS: Pantoprazole Sodium 40 MG Tablet PO (08:38)
[2023-05-17] MEDS: Thiamine Hydrochloride 100 MG Tablet PO (08:38)
[2023-05-17] MEDS: Folic Acid 1 MG Tablet PO (08:38)
--- NOTE | 2023-05-17 09:31 | PCM.PN.HOSP ---
Subjective Subjective Resting comfortably, no issues overnight. CIWA score 4 Objective Data Objective Data Vital Signs: Vital Signs Temp Pulse Resp BP Pulse Ox O2 Del Method 98.4 F 83 18 119/85 H 98 Room Air 05/17/23 08:32 05/17/23 08:32 05/17/23 08:32 05/17/23 08:32 05/17/23 08:32 05/17/23 08:32 Oxygen Delivery Method Room Air Weight: 180 lb Body Mass Index (BMI) 25.1 Intake & Output: Intake and Output for Last 24 Hours 05/16/23 05/17/23 05/18/23 03:59 03:59 03:59 Intake Total 1949 Output Total 0 / 0 0 / 0 Balance 1949 0 / 0 Lab / Micro Data 05/16/23 14:46 05/17/23 05:50 Labs: Laboratory Results - last 24 hr 05/16/23 14:46: WBC 8.3, RBC 5.34, Hgb 15.4, Hct 46.7, MCV 87.5, MCH 28.8, MCHC 33.0, RDW Std Deviation 47.1 H, RDW Coeff of Donovan 14.7 H, Plt Count 330, MPV 9.0, Immature Gran % (Auto) 0.800, Neut % (Auto) 51.6, Lymph % (Auto) 40.1, [place] % (Auto) 5.3, Eos % (Auto) 1.0, Baso % (Auto) 1.2 H, Absolute Neuts (auto) 4.3, Absolute Lymphs (auto) 3.31, Nucleated RBC % 0, Sodium 141, Potassium 3.4 L, Chloride 107, Carbon Dioxide 25.0, Anion Gap 9, BUN 9, Creatinine 1.04, Estim Creat Clear Calc 98.55, Est GFR (MDRD) Af Amer 101, Est GFR (MDRD) Non-Af 83, BUN/Creatinine Ratio 8.7 L, Glucose 133 H, Calcium 8.9, Total Bilirubin 0.60, AST 44 H, ALT 41, Alkaline Phosphatase 68, Total Protein 7.8, Albumin 4.5, Globulin 3.3, Albumin/Globulin Ratio 1.4, Ethyl Alcohol 398.0 H* 05/16/23 15:05: Urine Opiates Screen NEGATIVE, Urine Methadone Screen NEGATIVE, Ur Barbiturates Screen NEGATIVE, Ur Phencyclidine Scrn NEGATIVE, Ur Amphetamines Screen NEGATIVE, MDMA (Ecstasy) Screen NEGATIVE, U Benzodiazepines Scrn NEGATIVE, Urine Cocaine Screen NEGATIVE, U Cannabinoids Screen NEGATIVE, Ur Drug Screen Comment 05/17/23 05:50: Sodium 144, Potassium 3.7, Chloride 111 H, Carbon Dioxide 25.0, Anion Gap 8, BUN 8, Creatinine 0.82, Estim Creat Clear Calc 124.99, Est GFR (MDRD) Af Amer 132, Est GFR (MDRD) Non-Af 109, BUN/Creatinine Ratio 9.7 L, Glucose 91, Calcium 7.9 L Physical Exam Narrative General: Alert, Oriented x3, Cooperative, No apparent distress HEENT: Atraumatic, PERRLA, EOMI, Normocephalic Oral: Moist Mucosa Neck: Supple, No JVD Lungs: Clear to auscultation, Normal air movement, No rhonchi, No wheeze, No rales Cardiovascular: Regular rate, Regular Rhythm, Normal S1, Normal S2, No murmurs Abdomen: Soft, Non Tender, Non-Distended, No Hepato-splenomegaly Extremities: No edema, Capillary Refill Less than 3 Seconds Skin: No rashes, No breakdown Musculoskeletal: No Tenderness to Palpation of Joints or Extremities Neurological: No focal neurological deficits, Motor Exam 5/5 strength throughout, Sensory exam intact to light touch and pain Psych/Mental Status: Normal Affect, Appropriate Assessment & Plan Assessment/Plan (1) Alcohol intoxication: (2) Desire for detoxification: (3) Tobacco use: PLAN: Plan 1. Alcohol abuse requesting detox/tobacco use ? Continue with the alcohol withdrawal protocol he has had DTs and withdrawal seizures in the past ? If necessary can add Librium ? Will have him follow-up with 180 to establish outpatient interventions ? Discussed tobacco cessation ? Continue with nicotine replacement 2. GERD ? Stable ? Continue with PPI DVT: Ambulation Charges/Coding Visit Charges Inpatient E&M: 18424 Subs Hosp L2
[2023-05-17] MEDS: Gabapentin 300 MG Capsule PO ×2 (12:22→20:10)
--- NOTE | 2023-05-17 14:17 | ADDICTION ---
This senior mortgage underwriter met with PT to conduct ASAM, MSE, AUDIT assessments and to plan for d/c. PT A+Ox4 and participated actively. All assessments completed and placed in PT's chart. PT plans to f/u with [facility] for follow-up treatment services. [facility] will provide transportation to treatment on Saturday post d/c from [facility].
[2023-05-17] MEDS: Dicyclomine 10 MG Capsule 20 MG PO (16:39)
[2023-05-17 16:41] VITALS: BP 123/77; PULSE 68; RESP 18; TEMP 37.2; O2SAT 96
[2023-05-17 20:00] VITALS: BP 124/78; PULSE 62; RESP 18; TEMP 37; O2SAT 98
[2023-05-17] MEDS: traZODone 100 MG Tablet PO (20:10)
[2023-05-18 02:00] VITALS: BP 121/86; PULSE 61; RESP 16; TEMP 37; O2SAT 98
[2023-05-18] MEDS: Phenobarbital 32.4 MG Tablet 32.3999999999999986 MG PO ×5 (03:00→20:23)
[2023-05-18] MEDS: hydrOXYzine PAM 25 MG Capsule 50 MG PO ×2 (03:00→08:16)
[2023-05-18 08:15] VITALS: BP 128/96; PULSE 73; RESP 16; TEMP 37.1; O2SAT 97
[2023-05-18] MEDS: Pantoprazole Sodium 40 MG Tablet PO (08:17)
[2023-05-18] MEDS: Thiamine Hydrochloride 100 MG Tablet PO (08:17)
[2023-05-18] MEDS: Folic Acid 1 MG Tablet PO (08:17)
[2023-05-18 11:55] VITALS: BP 131/88; PULSE 83; RESP 16; TEMP 37.3; O2SAT 99
--- NOTE | 2023-05-18 13:02 | PN.HOSP_ITS ---
Reason for Visit Reason for Visit: Diagnoses Alcohol use, unspecified with intoxication, unspecified (05/16/23) Tobacco use (05/16/23) Subjective Subjective No acute events overnight. Patient resting comfortably in bed this morning, no acute distress. States his withdrawal symptoms are well-controlled today. Denies any other acute concerns this time. Objective Data Objective Data Vital Signs: Vital Signs Temp Pulse Resp BP Pulse Ox O2 Del Method 99.1 F 83 16 131/88 H 99 Room Air 05/18/23 11:55 05/18/23 11:55 05/18/23 11:55 05/18/23 11:55 05/18/23 11:55 05/18/23 11:55 Oxygen Delivery Method Room Air Weight: 81.647 kg Body Mass Index (BMI) 25.1 Intake & Output: Intake and Output for Last 24 Hours 05/16/23 05/17/23 05/18/23 23:59 23:59 23:59 Intake Total 1000 / 1000 1919 Output Total 0 / 0 Balance 1000 / 1000 1919 Lab / Micro Data 05/16/23 14:46 05/17/23 05:50 Physical Exam Const alert, oriented x3, no apparent distress and average body habitus Constitutional Narrative: Mildly fatigued. General Appearance: cooperative and comfortable HEENT normocephalic, head/scalp atraumatic, hearing grossly normal bilaterally, nasal mucous membranes and turbinates normal and moist oral mucous membranes Eyes PERRL, EOMs intact bilaterally and conjunctivae normal Neck full ROM, no lymphadenopathy and supple Lymph Lymphatic: no lymphadenopathy noted Chest inspection of chest normal Resp normal respiratory effort, normal air movement, no use of accessory muscles and clear to auscultation bilaterally Cardio regular rate, regular rhythm, no murmurs and peripheral pulses 2+ throughout GI normal to inspection, nondistended, normoactive bowel sounds, soft to palpation, non-tender and non-distended Back/Spine normal ROM Extremity normal to inspection, full ROM and no pedal edema Skin no rashes or lesions noted Neuro no focal motor deficits and no sensory deficits noted Speech: speech normal Psych mental status grossly normal Assessment & Plan Assessment/Plan (1) Alcohol abuse: (2) Desire for detoxification: PLAN: Plan Patient is a 43-year-old male who presented to [facility] ED on 05/16/2023 with alcohol abuse and desire for detoxification. 1. Alcohol abuse with history of withdrawal seizures ? Alcohol level 398 on admit. UDS negative. Has history of withdrawal seizures and DTs. Started on phenobarbital taper on admit, has had good control of withdrawal symptoms with this, likely would not need Librium for additional symptom control. Addiction medicine following, planning to follow-up with 180 to establish outpatient interventions on discharge. 2. Tobacco use ? Advised tobacco cessation. Nicotine placement therapy ordered per patient request. 3. GERD ? Stable. Continue home PPI. DVT prophylaxis: Low risk, ambulate CODE STATUS: Full code, unverified Expected disposition: Home, 1 to 2 days Total clinical time spent by myself addressing the patient's medical issues, reviewing all the data, and collaborating with patient's care team: 25 minutes. Charges/Coding Visit Charges Inpatient E&M: 54731 Subs Hosp L1
[2023-05-18] MEDS: Nicotine Polacrilex 2 MG GUM PO (14:16)
[2023-05-18 15:48] VITALS: BP 136/75; PULSE 82; RESP 16; TEMP 36.8; O2SAT 98
[2023-05-18 20:00] VITALS: BP 124/89; PULSE 70; RESP 16; TEMP 36.8; O2SAT 99
[2023-05-19] MEDS: Phenobarbital 32.4 MG Tablet 32.3999999999999986 MG PO ×5 (00:09→20:36)
[2023-05-19] MEDS: traZODone 100 MG Tablet PO ×2 (00:09→20:38)
[2023-05-19 04:00] VITALS: BP 113/76; PULSE 74; RESP 16; TEMP 36.7; O2SAT 98
[2023-05-19 07:40] VITALS: BP 114/73; PULSE 78; RESP 16; TEMP 36.4; O2SAT 95
[2023-05-19] MEDS: Folic Acid 1 MG Tablet PO (07:44)
[2023-05-19] MEDS: Thiamine Hydrochloride 100 MG Tablet PO (07:44)
[2023-05-19] MEDS: Pantoprazole Sodium 40 MG Tablet PO (07:44)
[2023-05-19 14:14] VITALS: BP 116/67; PULSE 90; RESP 16; TEMP 36.6; O2SAT 99
--- NOTE | 2023-05-19 14:40 | PCM.PN.HOSP ---
Reason for Visit Reason for Visit: Diagnoses Alcohol abuse, uncomplicated (05/16/23) Alcohol use, unspecified with intoxication, unspecified (05/16/23) Tobacco use (05/16/23) Subjective Subjective No acute events overnight. Patient seen at bedside this morning. Denied any withdrawal symptoms this morning, was feeling well. Patient's plan is to go directly to an inpatient treatment center in [place] on discharge. Told the patient that unfortunately transport is unlikely for today, so we will plan for discharge tomorrow. Phenobarbital taper scheduled to end tomorrow afternoon, will continue this until his discharge. No other acute concerns per patient at this time. Objective Data Objective Data Vital Signs: Vital Signs Temp Pulse Resp BP Pulse Ox O2 Del Method 97.9 F 90 16 116/67 99 Room Air 05/19/23 14:14 05/19/23 14:14 05/19/23 14:14 05/19/23 14:14 05/19/23 14:14 05/19/23 14:14 Oxygen Delivery Method Room Air Weight: 81.647 kg Body Mass Index (BMI) 25.1 Intake & Output: Intake and Output for Last 24 Hours 05/17/23 05/18/23 05/19/23 23:59 23:59 23:59 Intake Total 1920 / 1920 450 / 450 Output Total 0 / 0 Balance 1920 / 1920 450 / 450 Lab / Micro Data 05/16/23 14:46 05/17/23 05:50 Physical Exam Const alert, oriented x3, no apparent distress and average body habitus Constitutional Narrative: Pleasant middle-age male, lying comfortably in bed, conversing normally, no acute distress. No withdrawal symptoms noted. General Appearance: cooperative and comfortable HEENT normocephalic, head/scalp atraumatic, hearing grossly normal bilaterally, nasal mucous membranes and turbinates normal and moist oral mucous membranes Eyes PERRL, EOMs intact bilaterally and conjunctivae normal Neck full ROM, no lymphadenopathy and supple Lymph Lymphatic: no lymphadenopathy noted Chest inspection of chest normal Resp normal respiratory effort, normal air movement, no use of accessory muscles and clear to auscultation bilaterally Cardio regular rate, regular rhythm, no murmurs and peripheral pulses 2+ throughout GI normal to inspection, nondistended, normoactive bowel sounds, soft to palpation, non-tender and non-distended Back/Spine normal ROM Extremity normal to inspection, full ROM and no pedal edema Skin no rashes or lesions noted Neuro no focal motor deficits and no sensory deficits noted Speech: speech normal Psych mental status grossly normal Assessment & Plan Assessment/Plan (1) Alcohol abuse: (2) Desire for detoxification: PLAN: Plan Patient is a 43-year-old male who presented to [facility] ED on 05/16/2023 with alcohol abuse and desire for detoxification. 1. Alcohol abuse with history of withdrawal seizures ? Alcohol level 398 on admit. UDS negative. Has history of withdrawal seizures and DTs. Started on phenobarbital taper on admit, has had good control of withdrawal symptoms with this, likely would not need Librium for additional symptom control. Will complete phenobarbital taper tomorrow. Case management following, planning for discharge directly to inpatient treatment center in [place] tomorrow once transport is available. 2. Tobacco use ? Advised tobacco cessation. Nicotine placement therapy ordered per patient request. 3. GERD ? Stable. Continue home PPI. DVT prophylaxis: Low risk, ambulate CODE STATUS: Full code, unverified Expected disposition: Inpatient treatment center for alcohol abuse, tomorrow Total clinical time spent by myself addressing the patient's medical issues, reviewing all the data, and collaborating with patient's care team: 25 minutes. Charges/Coding Visit Charges Inpatient E&M: 21236 Subs Hosp L1
[2023-05-19 21:23] VITALS: BP 121/76; PULSE 80; RESP 16; TEMP 36.7; O2SAT 98
[2023-05-20] MEDS: Phenobarbital 32.4 MG Tablet 32.3999999999999986 MG PO ×2 (02:13→07:44)
[2023-05-20 02:17] VITALS: BP 127/78; PULSE 70; RESP 16; TEMP 36.4; O2SAT 98
[2023-05-20] MEDS: Thiamine Hydrochloride 100 MG Tablet PO (07:46)
[2023-05-20] MEDS: Folic Acid 1 MG Tablet PO (07:46)
[2023-05-20] MEDS: Pantoprazole Sodium 40 MG Tablet PO (07:46)
[2023-05-20 07:49] VITALS: BP 129/87; PULSE 68; RESP 17; TEMP 36.5; O2SAT 99
--- NOTE | 2023-05-20 09:24 | DS.PCM_ITS ---
Providers Date of Admission: 05/16/23 Primary Care Physician: Naa Primary Care Phys Reason For Visit: ETOH INTOX/DETOX Diagnosis Discharge Diagnosis (1) Alcohol abuse: Status: Acute Code(s): F10.10 - Alcohol abuse, uncomplicated (2) Desire for detoxification: Status: Acute Medications at Discharge Home Medications esomeprazole magnesium 40 mg capsule,delayed release 40 mg PO DAILY ACID REFLUX 05/16/23 multivitamin (Daily Multi-Vitamin tablet) 1 tab PO DAILY SUPPLEMENT 05/16/23 Hospital Course Operations None Procedures None Summary of Care Provided Hospital Course: Patient presented with acute alcohol withdrawal. Patient was placed on phenobarbital drip on the . Patient was quite confused at 1 point but today is feeling much better. Plan is for him to go to [facility] inpatient services today. Weight / BMI Weight Weight: 81.647 kg Body Mass Index (BMI) 25.1 ABG / Lab / Microbiology Data 05/16/23 14:46 05/17/23 05:50 D/C Instructions Discharge Diet: No restrictions Meaningful Use Info Meaningful Use Diagnoses (Choose all that apply): None applicable Discharge Plan Admission Admit Date/Time: 05/16/23 16:53 Primary Reason for Your Visit: Alcohol withdrawal Attending Provider: Kavin Parr Primary Care Provider: Care Physician,No Primary Consulting Providers: Dottie Giordano; James Serrano; Mac Mendez Discharge Orders/Prescriptions Prescriptions: Continued esomeprazole magnesium 40 mg capsule,delayed release(DR/EC) 40 mg PO DAILY multivitamin [Daily Multi-Vitamin] Tablet 1 tab PO DAILY Referrals / Follow Up: Care Physician,No Primary [Primary Care Provider] - Disposition Disposition (needs filled in before D/C Order can be placed): Home, Self Care Charges/Coding Visit Charges Inpatient E&M: 89438 Disch Hosp
--- NOTE | 2023-05-20 10:38 | PHA.DC.MR.R ---
Pharmacy [place] Med Reconciliation Pharmacy Service has performed discharge medication reconciliation for this patient. The patient's discharge medication list was reviewed for discrepancies and discrepancies were resolved. Medications at Discharge Home Medications esomeprazole magnesium 40 mg capsule,delayed release 40 mg PO DAILY ACID REFLUX 05/16/23 multivitamin (Daily Multi-Vitamin tablet) 1 tab PO DAILY SUPPLEMENT 05/16/23
== END 2023-05-20 11:49 | disposition home or self-care (01) | DRG 775 ==
LOC: ED 16:41 → MS3 17:09
PROVIDERS: Physician Assistant; Admitting Provider Internal Medicine; Emergency Provider Emergency Medicine
DX: F10.139 Alcohol abuse with withdrawal, unspecified (principal); E87.6 Hypokalemia; F10.129 Alcohol abuse with intoxication, unspecified; F17.210 Nicotine dependence, cigarettes, uncomplicated; K21.9 Gastro-esophageal reflux disease without esophagitis; Y90.8 Blood alcohol level of 240 mg/100 ml or more
CPT/HCPCS: 36415; 80048; 80053; 80307; 80320; 85025; 97802; 99284; J7030; G0480